=== PATIENT | male | born 2005 | race Caucasian/White ===

== ENCOUNTER 2023-11-09 15:46 | Emergency (ER) | payer OTHER, SELFPAY ==
[2023-11-09 15:49] VITALS: BP 117/94; PULSE 82; TEMP 36.6; O2SAT 99; BMI 29.6
--- NOTE | 2023-11-09 15:55 | XR_ITS ---
The [address] [address] Patient Name: CHRISTI DOUGHERTY MRN: [id number] date: 2005 Sex: M Assigned Patient Location: ED.MAIN Current Patient Location: ED.MAIN Accession/Order Number: [id number] Exam Date: 11/09/2023 16:04 Report Date: 11/09/2023 17:00 At the request of: NANDO CARDENAS Procedure: XR chest 2V EXAM: XR chest 2V HISTORY: Cough COMPARISON: None. TECHNIQUE: Chest X-ray, 2 views FINDINGS: Support devices: None. Lungs/pleura: No consolidation, effusion, or pneumothorax. Heart and mediastinum: Normal contours. Bones: No acute abnormality identified. XR/XR chest 2V Impression: No radiographic evidence of acute cardiopulmonary process. Electronically authenticated by: ALIE CARTWRIGHT Date: 11/09/2023 17:00
--- NOTE | 2023-11-09 17:06 | ECG_ITS ---
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
--- NOTE | 2023-11-09 17:21 | ED_ITS ---
HPI HPI - General Adult General Chief complaint: Shortness of Breath/Dyspnea Stated complaint: DIFF BREATHING, PRESSURE, CRACKLING Time Seen by Provider: 11/09/23 15:55 Source: patient Mode of arrival: walk-in Limitations: no limitations History of Present Illness HPI narrative: Patient is a 18-year-old male who presents to the emergency department with complaint of feeling short of breath and pressure in the right chest for the last several days. He was recently treated for a chronic sinus infection , throat infection and lung infection by his PCP with amoxicillin. He states 4 to 6 weeks ago he was on low-dose amoxicillin and a metabolic steroid . He has had no objective fevers, vomiting, hemoptysis. No medications taken prior to arrival today. He has no history of any heart or lung problems, no history of extremity swelling, hemoptysis. He arrives with stable vital signs in the ER. Related Data Home Medications ?Medication ?Instructions ?Recorded ?Confirmed bupropion HCl 150 mg 24 hr tablet, 150 mg PO DAILY 11/09/23 11/09/23 extended release buspirone 15 mg tablet 15 mg PO DAILY 11/09/23 11/09/23 dextroamphetamine-amphetamine ER 15 mg PO DAILY 11/09/23 11/09/23 15 mg 24hr capsule,extend release Previous Rx's ?Medication ?Instructions ?Recorded albuterol sulfate 90 mcg/actuation 2 inh inhalation Q4H PRN shortness 11/09/23 aerosol inhaler of breath or wheezing #8.5 grams cefdinir 300 mg capsule 300 mg PO BID 10 days #20 caps 11/09/23 ketorolac 10 mg tablet 10 mg PO TID PRN pain #10 tabs 11/09/23 methylprednisolone 4 mg tablets in See Rx Instructions .Route 11/09/23 a dose pack (Medrol (Candido)) .COMPLEX #21 ea Allergies Allergy/AdvReac Type Severity Reaction Status Date / Time No Known Drug Allergies Allergy Verified 11/09/23 15:58 Opioid HPI Opioid Management Most Recent Opioid Data: No Data to Display Review of Systems ROS Constitutional Denies: fever or chills Ears, nose, mouth, and throat Reports: throat pain; Denies: nasal congestion Cardiovascular Reports: chest pain Respiratory Reports: shortness of breath and cough; Denies: coughing up blood Gastrointestinal Denies: nausea or vomiting Musculoskeletal Denies: back pain Integumentary/Breast Denies: rash Neurological Denies: headache Hematologic/Lymphatic Denies: easy bruising or easy bleeding Exam Narrative Exam Narrative: Gen.: Awake, alert, in no distress Head: Normocephalic, atraumatic ENT: Moist mucous membranes Respiratory: No respiratory distress, lungs clear bilaterally; Pain with inspiration of the right chest wall Cardio: Regular rate and rhythm Gastrointestinal: Abdomen is soft, nondistended and nontender to palpation Extremities: Moves extremities equally Psych: Normal mood and affect Neuro: No focal neuro deficit Skin: Warm, dry, intact Constitutional Vital Signs, click to edit/add: Last Vital Signs Temp 98 F 11/09/23 15:49 Pulse 82 11/09/23 15:49 Resp 20 11/09/23 15:49 BP 117/94 H 11/09/23 15:49 Pulse Ox 99 11/09/23 15:49 O2 Del Method Room Air 11/09/23 15:49 Course Vital Signs Vital signs: Vital Signs Temperature 98 F 11/09/23 15:49 Pulse Rate 82 11/09/23 15:49 Respiratory Rate 20 11/09/23 15:49 Blood Pressure 117/94 H 11/09/23 15:49 Pulse Oximetry 99 11/09/23 15:49 Oxygen Delivery Method Room Air 11/09/23 15:49 Temperature 98 F 11/09/23 15:49 Pulse Rate 82 11/09/23 15:49 Respiratory Rate 20 11/09/23 15:49 Blood Pressure 117/94 H 11/09/23 15:49 Pulse Oximetry 99 11/09/23 15:49 Oxygen Delivery Method Room Air 11/09/23 15:49 Medical Decision Making [facility] Narrative Medical decision making narrative: Patient with normal vital signs, no tachycardia or hypoxia. He has an unremarkable EKG and two-view chest x-ray was read by the radiologist as ne gative. Patient has a PERC score of 0, he is in no respiratory distress and speaking/Breathing easily. He was given a breathing treatment, steroid, cefdinir and Toradol. Prescription sent to the pharmacy for treatment of pleurisy, patient given education and reassurance. Follow-up with PCP and return to the ER if symptoms change or worsen Medical Records Medical records reviewed: Yes I reviewed the patient's medical records Imaging Data Chest x-ray: Attestation: I have reviewed the pertinent imaging results. Radiologist's impression: ITS Impressions Chest X-Ray 11/09/23 15:55 Impression: No radiographic evidence of acute cardiopulmonary process. Electronically authenticated by: ALIE CARTWRIGHT Date: 11/09/2023 17:00 ECG Data Attestation: I personally reviewed and interpreted this ECG as follows: (Normal sinus rhythm at a rate of 82, no acute ST elevation or ectopy. EKG reviewed by attending physician) Discharge Plan Discharge Stand Alone Forms: Portal Instructions Chief Complaint: Shortness of Breath/Dyspnea Clinical Impression: Dyspnea, Pleurisy Patient Disposition: Home, Self-Care Time of Disposition Decision: 17:20 Condition: Good Prescriptions / Home Meds: New ketorolac 10 mg tablet 10 mg PO TID PRN (Reason: pain) Qty: 10 0RF methylprednisolone [Medrol (Candido)] 4 mg tablets,dose pack See Rx Instructions .ROUTE .COMPLEX Qty: 21 0RF Rx Instructions: Taper as directed albuterol sulfate 90 mcg/actuation HFA aerosol inhaler 2 inh inhalation Q4H PRN (Reason: shortness of breath or wheezing) Qty: 8.5 0RF cefdinir 300 mg capsule 300 mg PO BID 10 Days Qty: 20 0RF No Action buspirone 15 mg tablet 15 mg PO DAILY dextroamphetamine-amphetamine 15 mg capsule,extended release 24hr 15 mg PO DAILY bupropion HCl 150 mg tablet extended release 24 hr 150 mg PO DAILY Print Language: [place] Instructions: Pleurisy (ED), Dyspnea (ED) Referrals: NORMA WAKEFIELD [Primary Care Provider] - 1 week
[2023-11-09] MEDS: ALBUTEROL SULFATE 2.5 MG/3 ML VIAL NEB IH (17:25)
[2023-11-09 17:26] VITALS: PULSE 88; O2SAT 97
[2023-11-09] MEDS: CEFDINIR 300 MG CAPSULE 600 MG PO (17:49)
[2023-11-09] MEDS: PREDNISONE 20 MG TABLET 60 MG PO (17:49)
[2023-11-09] MEDS: KETOROLAC TROMETHAMINE 10 MG TABLET PO (17:52)
== END 2023-11-09 18:09 | disposition home or self-care (01) ==
PROVIDERS: Emergency Provider Emergency Medicine; PCP Family Medicine
DX: R06.00 Dyspnea, unspecified (principal); R09.1 Pleurisy
CPT/HCPCS: 71046; 93005; 94640; 99284

== ENCOUNTER 2023-11-17 01:55 | Emergency (ER) | payer OTHER, SELFPAY ==
[2023-11-17 02:04] VITALS: BP 127/87; PULSE 96; TEMP 37.1; O2SAT 98; BMI 29.6
--- OUTSIDE RECORDS SUMMARY | 2023-11-17 02:12 | XMS_ITS | CCD ---
Author Organization [facility] Care Team Providers Care External Grinder Tender Name Role Phone India Tirado Unavailable MagdalenoChanda Unavailable Norma Mcdaniel MD Primary Care Provider NORMA MCDANIEL Attending Unavailable DEFRANCE, NORMA Richardson Referring Unavailable DEFRANCE, NORMA Richardson Primary Care Unavailable DEFRANCE, NORMA Richardson Attending Unavailable DEFRANCE, NORMA Richardson Referring Unavailable DEFRANCE, NORMA Richardson Primary Care Unavailable DEFRANCE, NORMA Richardson Attending Unavailable DEFRANCE, NORMA Richardson Referring Unavailable DEFRANCE, NORMA Richardson Primary Care Unavailable DEFRANCE, NORMA Richardson Attending Unavailable DEFRANCE, NORMA Richardson Referring Unavailable DEFRANCE, NORMA Richardson Primary Care Unavailable DEFRANCE, NORMA Richardson Attending Unavailable DEFRANCE, NORMA Richardson Referring Unavailable DEFRANCE, NORMA Richardson Primary Care Unavailable DEFRANCE, NORMA Richardson Attending Unavailable DEFRANCE, NORMA Richardson Referring Unavailable DEFRANCE, NORMA Richardson Primary Care Unavailable SHELLILAKESHA Attending Unavailable DEFRANCE, NORMA Richardson Referring Unavailable DEFRANCE, NORMA Richardson Primary Care Unavailable JEZAKATHY Collins Attending Unavailable DEFRANCE, NORMA Richardson Referring Unavailable DEFRANCE, NORMA Richardson Primary Care Unavailable SHELLILAKESHA Attending Unavailable DEFRANCE, NORMA Richardson Referring Unavailable DEFRANCE, NORMA Richardson Primary Care Unavailable DEFRANCE, NORMA Richardson Referring Unavailable DEFRANCE, NORMA Richardson Primary Care Unavailable DEFRANCE, NORMA Richardson Referring Unavailable DEFRANCE, NORMA Richardson Primary Care Unavailable SHELLILAKESHA Attending Unavailable DEFRANCE, NORMA Richardson Referring Unavailable DEFRANCE, NORMA Richardson Primary Care Unavailable DEFRANCE, NORMA Richardson Referring Unavailable DEFRANCE, NORMA Richardson Primary Care Unavailable SHELLILAKESHA Attending Unavailable DEFRANCE, NORMA Richardson Referring Unavailable DEFRANCE, NORMA Richardson Primary Care Unavailable JEZAKATHY Collins Attending Unavailable DEFRANCE, NORMA Richardson Referring Unavailable DEFRANCE, NORMA Richardson Primary Care Unavailable DEFRANCE, NORMA Richardson Referring Unavailable DEFRANCE, NORMA T Primary Care Unavailable SHELLI, LAKESHA Walker Attending Unavailable DEFRANCE, NORMA T Referring Unavailable DEFRANCE, NORMA T Primary Care Unavailable JEZAKATHY Collins Attending Unavailable DEFRANCE, NORMA T Referring Unavailable DEFRANCE, NORMA T Primary Care Unavailable SHELLI, LAKESHA Walker Attending Unavailable DEFRANCE, NORMA T Referring Unavailable DEFRANCE, NORMA T Primary Care Unavailable SHELLI, LAKESHA Walker Attending Unavailable DEFRANCE, NORMA T Referring Unavailable DEFRANCE, NORMA T Primary Care Unavailable DEFRANCE, NORMA T Referring Unavailable DEFRANCE, NORMA T Primary Care Unavailable JEZAKKATHY Attending Unavailable DEFRANCE, NORMA T Referring Unavailable DEFRANCE, NORMA T Primary Care Unavailable DEFRANCE, NORMA T Referring Unavailable DEFRANCE, NORMA T Primary Care Unavailable SHELLI, LAKESHA Walker Attending Unavailable DEFRANCE, NORMA T Referring Unavailable DEFRANCE, NORMA T Primary Care Unavailable DEFRANCE, NORMA T Referring Unavailable DEFRANCE, NORMA T Primary Care Unavailable SHELLI, LAKESHA Wakler Attending Unavailable DEFRANCE, NORMA T Referring Unavailable DEFRANCE, NORMA T Primary Care Unavailable JEZAKKATHY Attending Unavailable DEFRANCE, NORMA T Referring Unavailable DEFRANCE, NORMA T Primary Care Unavailable JEZAKKATHY Attending Unavailable DEFRANCE, NORMA T Referring Unavailable DEFRANCE, NORMA T Primary Care Unavailable JEZAK, KATHY MEYER Referring Unavailable DEFRANCE, NORMA T Primary Care Unavailable SHELLI, LAKESHA Walker Attending Unavailable DEFRANCE, NORMA T Referring Unavailable DEFRANCE, NORMA T Primary Care Unavailable JEZAKKATHY Attending Unavailable DEFRANCE, NORMA T Referring Unavailable DEFRANCE, NORMA T Primary Care Unavailable SHELLI, LAKESHA Walker Attending Unavailable DEFRANCE, NORMA T Referring Unavailable DEFRANCE, NORMA T Primary Care Unavailable Medications Current Medications Medication Drug Class(es) Dates Sig (Normalized) Sig (Original) 24 hr amphetamine aspartate 3.75 mg / amphetamine sulfate 3.75 mg / dextroamphetamine saccharate 3.75 mg / dextroamphetamine sulfate 3.75 mg extended release oral capsule (6 sources) Central Nervous System Stimulant Start: 09-04-2023 End: 10-04-2023 take 1 capsule by mouth once daily in the morning amphetamine-dextro amphetamine XR (ADDERALL XR) 15 mg 24 hr capsule Indications: Attention deficit hyperactivity disorder (ADHD), combined type Take 1 capsule (15 mg total) by mouth in the morning for 30 days. Max Daily Amount: 15 mg. 30 capsule 0 09/04/2023 10/04/2023 Active Start: 07-22-2023 End: 09-06-2023 take 1 capsule by mouth once daily in the morning amphetamine-dextroamphetamine XR (ADDERA LL XR) 10 mg 24 hr capsule Indications: Attention deficit hyperactivity disorder (ADHD), combined type Take 1 capsule (10 mg total) by mouth in the morning for 30 days. Max Daily Amount: 10 mg. 30 capsule 0 08/07/2023 09/06/2023 Active azithromycin 250 mg oral tablet (1 source) Macrolide Antimicrobial Start: 09-04-2023 End: 09-09-2023 azithromycin (ZITHROMAX) 250 mg tablet Take 2 tablets the first day, then 1 tablet daily for 4 days. 6 tablet 0 09/04/2023 09/09/2023 Active 24 hr buPROPion hydrochloride 150 mg extended release oral tablet (8 sources) Aminoketone Start: 09-04-2023 take 1 tablet by mouth every twenty-four hours in the morning buPROPion XL (WELLBUTRIN XL) 150 mg 24 hr tablet Indications: Severe recurrent major depression without psychotic features (CMS-HCC) Take 1 tablet (150 mg total) by mouth in the morning. 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 30 tablet 3 06/13/2023 Active take 1 tablet by colette th every twenty-four hours Wellbutrin XL 150 MG 1 tablet in the morning Orally Once a day Active busPIRone hydrochloride 15 mg oral tablet (6 sources) Start: 09-04-2023 take 1 tablet by mouth in the morning, then take 1 tablet by mouth at bedtime busPIRone (BUSPAR) 15 mg tablet Indications: Generalized anxiety disorder Take 1 tablet (15 mg total) by mouth in the morning and 1 tablet (15 mg total) before bedtime. 60 tablet 3 09/04/2023 Active Start: 08-29-2023 take 10 mg by mouth twice riri y Buspirone Active 10 MG PO Twice daily August 29, 2023 12:00am Start: 08-07-2023 take 1 tablet by colette th in the morning, then take 1 tablet by mouth at bedtime busPIRone (BUSPAR) 10 mg tablet Indications: Generalized anxiety disorder Take 1 tablet (10 mg total) by mouth in the morning and 1 tablet (10 mg total) before bedtime. 60 tablet 3 08/07/2023 Active ciprofloxacin 500 mg oral tablet (4 sources) Quinolone Antimicrobial Start: 08-07-2023 End: 08-22-2023 take 1 tablet by mouth in the morning, then take 1 tablet by mouth at bedtime ciprofloxacin HCl (CIPRO) 500 mg tablet Take 1 tablet (500 mg total) by mouth in the morning and 1 tablet (500 mg total) before bedtime. Do all this for 15 days. 30 tablet 0 08/07/2023 08/22/2023 Active Dextroamphetamine-A mphetamine (1 source) Start: 08-29-2023 Dextroamphetamine- Amphetamine Active PO August 29, 2023 12:00am hydrOXYzine hydrochloride 25 mg oral tablet (7 sources) Antihistamine Start: 06-26-2023 take 1 tablet by mouth three times daily as needed for anxiety and sleep hydrOXYzine (ATARAX) 25 mg tablet Indications: Generalized anxiety disorder Take 1 tablet (25 mg total) by mouth 3 (three) times a day as needed for anxiety (and sleep). 90 tablet 3 06/26/2023 Active take 1 tablet by colette th every twenty-four hours hydrOXYzine HCl 25 MG 1 tablet as needed Orally Once a day Active Completed/Discontinued Medications Medication Drug Class(es) Dates Sig (Normalized) Sig (Original) ARIPiprazole 5 mg oral tablet (4 sources) Atypical Antipsychotic ARIPiprazole 5 MG Oral for 30 Days Not-Taking/PRN ascorbic acid 500 mg oral tablet (8 sources) Vitamin C End: 09-04-2023 take 1 tablet by mouth in the morning ascorbic acid (VITAMIN C) 500 mg tablet Take 1 tablet (500 mg total) by mouth in the morning. 0 09/04/2023 Discontinued (Alternate therapy) calcium carbonate 1250 mg / cholecalciferol 200 unt oral tablet (8 sources) Vitamin D End: 09-04-2023 take 1 tablet by mouth once in the morning calcium carbonate-vitamin D3 (OSCAL 500 + D) 500 mg(1,250mg) -200 units per tablet Take 1 tablet by mouth in the morning and 1 tablet in the evening. Take with meals. 0 09/04/2023 Discontinued (Alternate therapy) cetirizine hydrochloride 10 mg oral tablet (3 sources) Histamine-1 Receptor Antagonist Start: 03-19-2023 take 1 tablet by mouth every twenty-four hours Cetirizine HCl 10 MG 1 tablet Orally Once a day for 14 days Mar, Not-Taking/PRN Creatine (7 sources) End: 08-13-2023 creatine monohydrate powder Take by mouth. 0 08/13/2023 Discontinued (Alternate therapy) creatine monohyd rate powder Take by mouth. 0 Active cyclobenzaprine hydrochloride 10 mg oral tablet (6 sources) Muscle Relaxant Start: 08-07-2023 End: 09-04-2023 take 1 tablet by mouth once daily at bedtime cyclobenzaprine (FLEXERIL) 10 mg tablet Take 1 tablet (10 mg total) by mouth once daily at bedtime. 30 tablet 1 08/07/2023 09/04/2023 Discontinued (Alternate therapy) Start: 04-29-2023 End: 06-06-2023 take 1 tablet by mouth once daily cyclobenzaprine (FLEXERIL) 10 mg tablet Take 1 tablet (10 mg total) by mouth nightly. 30 tablet 3 04/29/2023 06/06/2023 Discontinued (Alternate therapy) escitalopram 5 mg oral tablet (4 sources) Serotonin Reuptake Inhibitor take 1 tablet by mouth once daily in the morning Escitalopram Oxalate 5 MG TAKE 1 TABLET BY MOUTH EVERY MORNING Oral for 30 Days Not-Taking/PRN fluticasone propionate 0.05 mg/actuat metered dose nasal spray (5 sources) Corticosteroid End: take 1 spray(s) nasal route in the morning fluticasone propionate (FLONASE) 50 mcg/actuation nasal spray Administer 1 spray into each nostril in the morning. For 1 week. 0 08/13/2023 Discontinued (Alternate therapy) ibuprofen 800 mg oral tablet (7 sources) Nonsteroidal Anti-inflammatory Drug Start: End: take 1 tablet by mouth every eight hours as needed for pain ibuprofen (MOTRIN) 800 mg tablet Take 1 tablet (800 mg total) by mouth every 8 (eight) hours as needed for pain. 60 tablet 2 04/29/2023 08/13/2023 Discontinued (Alternate therapy) lamoTRIgine 25 mg oral tablet (4 sources) Mood Stabilizer, Anti-epileptic Agent lamoTRIgine 25 MG Oral for 37 Days Not-Taking/PRN naproxen 500 mg oral tablet (6 sources) Nonsteroidal Anti-inflammatory Drug Start: End: take 1 tablet by mouth in the morning, then take 1 tablet by mouth at mealtime naproxen (NAPROSYN) 500 mg tablet Take 1 tablet (500 mg total) by mouth in the morning and 1 tablet (500 mg total) in the evening. Take with meals. 60 tablet 2 08/07/2023 08/08/2023 Discontinued (Alternate therapy) Start: 04-23-2023 take 1 tablet by colette th every twelve hours at mealtime as needed Naproxen 500 MG 1 tablet with food or milk as needed Orally every 12 hrs for 7 days Apr, Not-Taking/PRN End: 06-06-2023 take 1 tablet by mouth in the morning, then take 1 tablet by mouth at mealtime naproxen (EC NAPROSYN) 500 mg EC tablet Take 1 tablet (500 mg total) by mouth in the morning and 1 tablet (500 mg total) in the evening. Take with meals. 0 06/06/2023 Discontinued (Alternate therapy) omega 3-ldu-xuj-fish oil (Fi sh OiL) 300-1,000 mg capsule (8 sources) End: 09-04-2023 omega 2-ndl-hgp-fish oil (Fi sh OiL) 300-1,000 mg capsule Take by mouth. 0 09/04/2023 Discontinued (Alternate therapy) omega 3-dha-epa- fish oil (Fish OiL) 300-1,000 mg capsule Take by mouth. 0 Active predniSONE 20 mg oral tablet (4 sources) Start: 08-25-2023 End: 09-04-2023 take 1 tablet by mouth once daily at mealtime predniSONE (DELTASONE) 20 mg tablet Take 1 tablet (20mg) by mouth once a day for up to 5 days, take with food 0 08/25/2023 09/04/2023 Discontinued (Alternate therapy) Start: 03-19-2023 take 1 tablet by colette th every twelve hours prednisone 20 MG 1 tablet Orally BID for 5 Mar, Not-Taking/PRN UNABLE TO FIND (8 sources) End: 09-04-2023 UNABLE TO FIND Ashwaganda 0 09/04/2023 Discontinued (Alternate therapy) UNABLE TO FIND A shwaganda 0 Active vitamin b12 0.5 mg oral tablet (8 sources) Vitamin B12 End: 09-04-2023 take 1 tablet by mouth in the morning cyanocobalamin (vitamin B-12) 500 MCG tablet Take 1 tablet (500 mcg total) by mouth in the morning. 0 09/04/2023 Discontinued (Alternate therapy) Problems Active Problems Problem Classification Problem Date Documented Da te Episodic/Chronic Anxiety disorders (9 sources) Generalized anxiety disorder; Translations: [Generalized anxiety disorder] Onset: 03-25-2023 03-25-2023 Chronic Attention-deficit, conduct, and disruptive behavior disorders (3 sources) Attention-deficit hyperactivity disorder, combined type; Translations: [Attention-deficit hyperactivity disorder. combined type] Onset: 05-23-2023 Chronic Attention-deficit, conduct, and disruptive behavior disorders (6 sources) Attention deficit hyperactivity disorder, combined type; Translations: [Attention-deficit hyperactivity disorder, combined type] Onset: 06-13-2023 06-13-2023 Chronic Miscellaneous mental health disorders (2 sources) Insomnia due to other mental disorder; Translations: [Mental disorder, not otherwise specified] Onset: 06-13-2023 Chronic Mood disorders (11 sources) Dysthymic disorder; Translations: [Severe recurrent major depression without psychotic features] Onset: 03-25-2023 Chronic Nonspecific chest pain (1 source) Chest pain Onset: 10-17-2023 Episodic Other gastrointestinal disorders (2 sources) Dysphagia; Translations: [Dysphagia, unspecified] Episodic Other liver diseases (2 sources) Elevated liver enzymes level; Translations: [Abnormal levels of other serum enzymes] 08-08-2023 Episodic Other liver diseases (1 source) Abnormal levels of other serum enzymes; Translations: [Abnormal levels of other serum enzymes] Onset: 08-13-2023 Episodic Other nervous system disorders (1 source) Neuralgic amyotrophy; 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 Other nervous system disorders (2 sources) Other chronic pain; Translations: [Other chronic pain] Onset: 08-07-2023 Chronic Other nervous system disorders (2 sources) Neuralgic amyotrophy; 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] Onset: 05-14-2023 Chronic Other non-traumatic joint disorders (1 source) Chronic pain of left upper limb; Translations: [Pain in left shoulder] 08-07-2023 Episodic Other upper respiratory disease (3 sources) Allergic rhinitis due to pollen; Translations: [Allergic rhinitis due to pollen] Chronic Other upper respiratory disease (1 source) Allergic rhinitis due to pollen Chronic Other upper respiratory infections (5 sources) Acute pharyngitis, unspecified; Translations: [Acute upper respiratory infection, unspecified] Onset: 10-17-2023 Episodic Otitis media and related conditions (1 source) Other acute nonsuppurative otitis media, right ear Episodic Pleurisy; pneumothorax; pulmonary collapse (3 sources) Pleurisy; Translations: [Pleurisy] Onset: 09-04-2023 09-04-2023 Episodic Spondylosis; intervertebral disc disorders; other back problems (1 source) Spondylosis; intervertebral disc disorders; other back problems Onset: 06-06-2023 Sprains and strains (1 source) Strain of muscle, fascia and tendon of lower back, initial encounter Episodic Unclassified (1 source) Results Onset: 08-13-2023 Unclassified (1 source) Testicle Pain Onset: 06-19-2023 Past or Other Problems Problem Classification Problem Date Documented Date Episodic/Chronic Immunizations and screening for infectious disease (3 sources) Exposure to sexually transmissible disorder; Translations: [Contact with and (suspected) exposure to infections with a predominantly sexual mode of transmission] Onset: 08-07-2023 08-07-2023 Episodic Inflammatory conditions of male genital organs (1 source) Epididymitis; Translations: [Epididymitis] Onset: 06-19-2023 Episodic Malaise and fatigue (3 sources) Fatigue; Translations: [Other fatigue] Onset: 08-07-2023 08-07-2023 Episodic Mood disorders (8 sources) Mood disorders Onset: 06-06-2023 Resolved: 09-04-2023 06-06-2023 Other non-traumatic joint disorders (2 sources) Pain in left shoulder; Translations: [Pain in left shoulder] Onset: 08-07-2023 Episodic Spondylosis; intervertebral disc disorders; other back problems (3 sources) Neck pain; Translations: [Cervicalgia] Onset: 06-06-2023 06-06-2023 Episodic Results Test Name Value Interpretation Reference Range Facility XR CHEST 2 VWSon 09-04-2023 XR CHEST 2 VWS XR CHEST 2 VWS PA and lateral chest: HISTORY: Cough. Pleurisy. 2 views the chest are obtained. Cardiac and mediastinal contours are within normal limits. Lungs are clear. There is no vascular congestion or effusion. No pneumothorax. Osseous structures appear intact. IMPRESSION: No acute findings. Finalized by Stephen Urbina MD on 09/04/2023 7:31 PM Normal [facility] XR Chest PA and Lateralon PA and lateral chest : HISTORY: Cough. Pleurisy. 2 views the chest are obtained. Cardiac and mediastinal contours are within normal limits. Lungs are clear. There is no vascular congestion or effusion. No pneumothorax. Osseous structures appear intact. IMPRESSION: No acute findings. Finalized by Stephen Urbina MD on 09/04/2023 7:31 PM [facility] Stephen Urbina M D - 09/04/2023 PA and lateral chest: HISTORY: Cough. Pleurisy. 2 views the chest are obtained. Cardiac and mediastinal contours are within normal limits. Lungs are clear. There is no vascular congestion or effusion. No pneumothorax. Osseous structures appear intact. IMPRESSION: No acute findings. Finalized by Stephen Urbina MD on 09/04/2023 7:31 PM [facility] Radiology Study observation (narrative) [facility] XR Chest PA and LateralOrder ed By: Stephen Urbina on 09-04-2023 [facility] Work Phone: Herpes IgG profileon 024 HSV 1 IgG IA Qn (S) 0.2 {index_val} NINF [facility] Comment on above: Interpretation-------- <0.9 Negative 0.9 - 1.0 Equivocal >1.0 Positive HSV 2 IgG IA Qn (S) MALIK [facility] Comment on above: Interpretation-------- <0.9 Negative 0.9 - 1.0 Equivocal >1.0 Positive [facility] Syphilis Total(Unknown Syphi lis Status)on 08-08-2023 T. pallidum IgG+IgM IA Ql (S) [facility] Comment on above: NON REACTIVE No serologic evidence of infection to Treponema pallidum (syphilis). Repeat testing may be considered in patients with suspected acute or primary syphilis in 2 to 4 weeks. T. pallidum IgG+IgM IA Ql (S )on 08-08-2023 [facility] CBC AND AUTO DIFFon 08-07-19 24 ABSOLUTE BASOPHIL 0.0 X10E9/L Normal 0.0-0.2 [facility] Comment on above: Performed By: #### C BCA, CMP, 56745-2, THYR, 77450-4, HSVP, 98977-5 #### [facility] ([id number]) [address], [address] [place] [address] ABSOLUTE NEUTROPHIL 6.1 X10E9/L Normal 1.5-6.6 [place] Comment on above: Performed By: #### C BCA, CMP, 70911-5, THYR, 32027-2, HSVP, 25066-9 #### [facility] ([id number]) [address], [address] [place] [address] Basophils/100 WBC (Bld) 0.3 % Normal [facility] Comment on above: Performed By: #### C BCA, CMP, 60207-1, THYR, 05062-6, HSVP, 92857-2 #### [facility] ([id number]) [address] [place] [address] Eosinophils (Bld) [#/Vol] 0.1 10*3/uL Normal 0.0-0.4 [facility] Comment on above: Performed By: #### C BCA, CMP, 87321-5, THYR, 66266-5, HSVP, 75407-3 #### [facility] ([id number]) [address] [place] [address] Eosinophils/100 WBC (Bld) 0.9 % Normal [facility] Comment on above: Performed By: #### C BCA, CMP, 72450-5, THYR, 47890-6, HSVP, 15442-3 #### [facility] ([id number]) [address] [place] [address] Erythrocyte distribution width (RBC) [Ratio] 13.8 % Normal 11.5-15.0 [facility] Comment on above: Performed By: #### C BCA, CMP, 53519-7, THYR, 36968-6, HSVP, 37968-5 #### [facility] ([id number]) [address] [place] [address] Hematocrit (Bld) [Volume fraction] 48.6 % Normal 39-49 [facility] Comment on above: Performed By: #### C BCA, CMP, 52346-0, THYR, 32903-5, HSVP, 48917-3 #### [facility] ([id number]) [address] [place] [address] Hemoglobin (Bld) [Mass/Vol] 16.9 g/dL Normal 13.0-17.0 [facility] Comment on above: Performed By: #### C BCA, CMP, 18086-4, THYR, 62777-9, HSVP, 71658-7 #### [facility] ([id number]) [address], [address] [place] [address] Lymphocytes (Bld) [#/Vol] 2.5 10*3/uL Normal 1.0-3.5 [facility] Comment on above: Performed By: #### C BCA, CMP, 89236-9, THYR, 34486-1, HSVP, 28608-3 #### [facility] ([id number]) [address], [address] [place] [address] Lymphocytes/100 WBC (Bld) 26.2 % Normal [facility] Comment on above: Performed By: #### C BCA, CMP, 38606-5, THYR, 64503-2, HSVP, 85647-6 #### [facility] ([id number]) [address] [place] [address] MCH (RBC) [Entitic mass] 31.4 pg Normal 27-34 [facility] Comment on above: Performed By: #### C BCA, CMP, 47064-8, THYR, 82940-5, HSVP, 26961-3 #### [facility] ([id number]) [address] [place] [address] MCHC (RBC) [Mass/Vol] 34.8 g/dL Normal 32-36 [facility] Comment on above: Performed By: #### C BCA, CMP, 29517-2, THYR, 25847-6, HSVP, 72301-0 #### [facility] ([id number]) [address] [place] [address] MCV (RBC) [Entitic vol] 90 fL Normal 80-100 [facility] Comment on above: Performed By: #### C BCA, CMP, 67122-0, THYR, 62016-1, HSVP, 60196-7 #### [facility] ([id number]) [address] [place] [address] Monocytes (Bld) [#/Vol] 1.0 10*3/uL High 0-0.9 [facility] Comment on above: Performed By: #### C BCA, CMP, 50438-9, THYR, 75745-6, HSVP, 89294-3 #### [facility] ([id number]) [address], [address] [place] [address] Monocytes/100 WBC (Bld) 9.9 % Normal [facility] Comment on above: Performed By: #### C BCA, CMP, 57685-4, THYR, 24804-1, HSVP, 01478-2 #### [facility] ([id number]) [address], [address] [place] [address] Neutrophils/100 WBC (Bld) 62.7 % Normal [facility] Comment on above: Performed By: #### C BCA, CMP, 79337-2, THYR, 12656-8, HSVP, 23516-1 #### [facility] ([id number]) [address], [address] [place] [address] Platelet mean volume (Bld) [Entitic vol] 8.7 fL Normal 7-12 [facility] Comment on above: Performed By: #### C BCA, CMP, 84014-2, THYR, 36386-7, HSVP, 19232-2 #### [facility] ([id number]) [address], [address] [place] [address] Platelets (Bld) [#/Vol] 245 10*3/uL Normal 150-450 [facility] Comment on above: Performed By: #### C BCA, CMP, 97954-8, THYR, 20420-7, HSVP, 88571-7 #### [facility] ([id number]) [address], [address] [place] [address] RBC COUNT 5.40 X10E12/L Normal 4.10-5.70 [facility] Comment on above: Performed By: #### C BCA, CMP, 99184-0, THYR, 86086-3, HSVP, 24664-0 #### [facility] ([id number]) [address], [address] [place] [address] WBC (Bld) [#/Vol] 9.7 10*3/uL Normal 4.0-11.0 [facility] Comment on above: Performed By: #### C BCA, CMP, 15629-0, THYR, 60016-0, HSVP, 22873-1 #### [facility] ([id number]) [address] [place] [address] CBC auto differentialon Basophils (Bld) [#/Vol] 0.0 10*3/uL [facility] Basophils/100 WBC (Bld) 0.3 % [facility] Eosinophils (Bld) [#/Vol] 0.1 10*3/uL [facility] Eosinophils/100 WBC (Bld) 0.9 % [facility] Erythrocyte distribution width (RBC) [Ratio] 13.8 % 11.5 - 15.0 % [facility] Hematocrit (Bld) [Volume fraction] 48.6 % 39 - 49 % [facility] Hemoglobin (Bld) [Mass/Vol] 16.9 g/dL 13.0 - 17.0 g/dL [facility] Interpretation and review of laboratory results Abnormal [facility] Lymphocytes (Bld) [#/Vol] 2.5 10*3/uL [facility] Lymphocytes/100 WBC (Bld) 26.2 % [facility] MCH (RBC) [Entitic mass] 31.4 pg 27 - 34 pg [facility] MCHC (RBC) [Mass/Vol] 34.8 g/dL 32 - 36 g/dL [facility] MCV (RBC) [Entitic vol] 90 fL 80 - 100 fL [facility] Monocytes (Bld) [#/Vol] 1.0 10*3/uL High [facility] Monocytes/100 WBC (Bld) 9.9 % [facility] Neutrophils (Bld) [#/Vol] 6.1 10*3/uL [facility] Neutrophils/100 WBC (Bld) 62.7 % [facility] Platelet mean volume (Bld) [Entitic vol] 8.7 fL 7 - [address] [facility] Platelets (Bld) [#/Vol] 245 10*3/uL [facility] RBC (Bld) [#/Vol] 5.40 10*6/uL [facility] WBC corrected for nucl RBC Auto (Bld) [#/Vol] 9.7 [facility] CHLAMYDIA/GC PCR, Uon 2023 CHLAMYDIA/GC PCR, U SPECIMEN SOURCE URNE CHLAMYDIA DNA(PCR) Negative (qualifier value) Chlamydia trachomatis not detected by nucleic acid amplification. This does not exclude the possibility of infection because results are dependent on adequate specimen collection. GONORRHOEAE DNA(PCR) Negative (qualifier value) Neisseria gonorrhoeae not detected by nucleic acid amplification. This does not exclude the possibility of infection because results are dependent on adequate specimen collection. Normal [facility] Comment on above: Performed By: #### 5 6888-1, HSVP, 04848-8 #### [facility] ([id number]) [address], [address] [place] [address] COMPREHENSIVE METABOLIC PANE Irwin 08-07-2023 Albumin [Mass/Vol] 4.7 g/dL Normal 3.2-5.3 [facility] Comment on above: Performed By: #### C BCA, CMP, 95633-3, THYR, 39005-7, HSVP, 84974-3 #### [facility] ([id number]) [address], [address] [place] [address] ALP [Catalytic activity/Vol] 71 U/L Normal 39-130 [facility] Comment on above: Performed By: #### C BCA, CMP, 72037-6, THYR, 08241-0, HSVP, 91074-7 #### [facility] ([id number]) [address], [address] [place] [address] ALT [Catalytic activity/Vol] 103 U/L High 0-40 [facility] Comment on above: Performed By: #### C BCA, CMP, 78233-9, THYR, 18734-6, HSVP, 73876-8 #### [facility] ([id number]) [address], [address] [place] [address] Anion gap [Moles/Vol] 9 mmol/L Normal 5-15 [facility] Comment on above: Performed By: #### C BCA, CMP, 05738-7, THYR, 35143-6, HSVP, 71839-7 #### [facility] ([id number]) [address], [address] [place] [address] AST [Catalytic activity/Vol] 36 U/L Normal 0-41 [facility] Comment on above: Performed By: #### C BCA, CMP, 23045-1, THYR, 32220-4, HSVP, 37585-2 #### [facility] ([id number]) [address], [address] [place] [address] Bilirubin [Mass/Vol] 1.0 mg/dL Normal 0.3-1.2 [place] Comment on above: Performed By: #### C BCA, CMP, 43152-3, THYR, 33011-2, HSVP, 42975-5 #### [facility] ([id number]) [address], [address] [place] [address] Calcium [Mass/Vol] 9.7 mg/dL Normal 8.5-10.5 [facility] Comment on above: Performed By: #### C BCA, CMP, 18761-9, THYR, 04864-1, HSVP, 60930-5 #### [facility] ([id number]) [address], [address] [place] [address] Chloride [Moles/Vol] 103 mmol/L Normal 98-109 [place] Comment on above: Performed By: #### C BCA, CMP, 68526-2, THYR, 22953-6, HSVP, 70957-6 #### [facility] ([id number]) [address], [address] [place] [address] CO2 [Moles/Vol] 28 mmol/L Normal 22-32 [facility] Comment on above: Performed By: #### C BCA, CMP, 23918-5, THYR, 56739-9, HSVP, 60437-8 #### [facility] ([id number]) [address], [address] [place] [address] Creatinine [Mass/Vol] 1.02 mg/dL Normal 0.60-1.30 [facility] Comment on above: Result Comment: METH OD TRACEABLE TO IDMS STANDARD Performed By: #### C BCA, CMP, 85689-9, THYR, 46002-4, HSVP, 50917-1 #### [facility] ([id number]) [address], [address] [place] [address] eGFR (CKD-EPI) NON-RACE DEPENDENT >90 Normal >59 [facility] Comment on above: Result Comment: Reported eGFR is based on the CKD-EPI 2020 equation that does not use a race coefficient. Performed By: #### C BCA, CMP, 14787-7, THYR, 75899-3, HSVP, 86083-4 #### [facility] ([id number]) [address], [address] [place] [address] Glucose [Mass/Vol] 77 mg/dL Normal 65-99 [facility] Comment on above: Performed By: #### C BCA, CMP, 47111-8, THYR, 34562-3, HSVP, 04515-8 #### [facility] ([id number]) [address], [address] [place] [address] Potassium [Moles/Vol] 3.9 mmol/L Normal 3.5-5.0 [facility] Comment on above: Performed By: #### C BCA, CMP, 62390-4, THYR, 76771-9, HSVP, 75682-3 #### [facility] ([id number]) [address], [address] [place] [address] Protein [Mass/Vol] 7.5 g/dL Normal 6.0-8.0 [facility] Comment on above: Performed By: #### C BCA, CMP, 66238-0, THYR, 64634-2, HSVP, 71228-8 #### [facility] ([id number]) [address], [address] [place] [address] Sodium [Moles/Vol] 140 mmol/L Normal 134-146 [facility] Comment on above: Performed By: #### C BCA, CMP, 85318-2, THYR, 64073-3, HSVP, 14934-7 #### [facility] ([id number]) [address], [address] [place] [address] Urea nitrogen [Mass/Vol] 10 mg/dL Normal 5-23 [facility] Comment on above: Performed By: #### C BCA, CMP, 57235-0, THYR, 32483-7, HSVP, 08714-4 #### [facility] ([id number]) [address], [address] [place] [address] Comprehensive metabolic pane irwin 08-07-2023 Albumin [Mass/Vol] 4.7 g/dL 3.2 - 5.3 g/dL [facility] ALP [Catalytic activity/Vol] 71 U/L 39 - 130 U/L [facility] ALT No additional P-5'-P [Catalytic activity/Vol] 103 U/L High 0 - 40 U/L [facility] Anion gap [Moles/Vol] 9 mmol/L 5 - 15 mmol/L [facility] AST [Catalytic activity/Vol] 36 U/L 0 - 41 U/L [facility] Bilirubin [Mass/Vol] 1.0 mg/dL 0.3 - 1 .2 mg/dL [facility] Calcium [Mass/Vol] 9.7 mg/dL 8.5 - 10. 5 mg/dL [facility] Chloride [Moles/Vol] 103 mmol/L 98 - 10 9 mmol/L [facility] CO2 [Moles/Vol] 28 mmol/L 22 - 32 mmol/L [facility] Creatinine [Mass/Vol] 1.02 mg/dL 0.60 - 1.30 mg/dL [facility] Comment on above: METHOD TRACEABLE TO [facility] STANDARD eGFR (CKD-EPI)non-race dependent - PINF [facility] Comment on above: Reported eGFR is based on the CKD-EPI 2020 equation that does not use a race coefficient. Glucose [Mass/Vol] 77 mg/dL 65 - 99 mg/dL [facility] Potassium [Moles/Vol] 3.9 mmol/L 3.5 - 5.0 mmol/L [facility] Protein [Mass/Vol] 7.5 g/dL 6.0 - 8.0 g/dL [facility] Sodium [Moles/Vol] 140 mmol/L 134 - 146 mmol/L [facility] Urea nitrogen [Mass/Vol] 10 mg/dL 5 - 23 mg/dL [facility] HERPES IgG PROFILEon 08-06-2 024 HERPES 1 IgG 0.2 AI Normal <0.9 [facility] Comment on above: Result Comment: Interpretation-------- <0.9 Negative 0.9 - 1.0 Equivocal >1.0 Positive Performed By: #### 5 6888-1, HSVP, 84763-2 #### [facility] ([id number]) [address] [place] [address] HERPES 2 IgG <0.2 Normal <0.9 [facility] Comment on above: Result Comment: Interpretation-------- <0.9 Negative 0.9 - 1.0 Equivocal >1.0 Positive Performed By: #### 5 6888-1, HSVP, 64225-6 #### [facility] ([id number]) [address] [place] [address] HIV 1&2 AB/AG Screen (P24 AG )on 08-07-2023 HIV 1+2 Ab+HIV1 p24 Ag IA Ql Non-Reactive Non-Reactive^ Non-Reactive [facility] Comment on above: This information has been disclosed to you from confidential records protected from disclosure by state law. You shall make no further disclosure of this information without the specific, written and informed release of the individual to whom it pertains, or as otherwise permitted by state law. A general authorization for the release of medical or other information is not sufficient for the purpose of the release of HIV test results or diagnoses. HIV 1+2 Ab+HIV1 p24 Ag IA Ql on 08-07-2023 [facility] HIV 1 and 2 Ab/Ag Screen Non-Reactive Normal NRCT [facility] Comment on above: Result Comment: This information has been disclosed to you from confidential records protected from disclosure by state law. You shall make no further disclosure of this information without the specific, written and informed release of the individual to whom it pertains, or as otherwise permitted by state law. A general authorization for the release of medical or other information is not sufficient for the purpose of the release of HIV test results or diagnoses. Performed By: #### 5 6888-1, HSVP, 31862-5 #### [facility] ([id number]) [address] [place] [address] Lipid 1996 panelon 4 Cholesterol [Mass/Vol] 181 mg/dL 150 - 200 mg/dL [facility] Cholesterol in HDL [Mass/Vol] 38 mg/dL Low 39 - PINF mg/dL [facility] Comment on above: HDL <40 mg/dL - High Risk HDL > or = 40mg/dL- Desirable HDL >60 mg/dL - Negative Risk Cholesterol in LDL [Mass/Vol] 115 mg/dL NINF - 130 mg/dL [facility] Comment on above: LDL <100 mg/dL - Desirable LDL >160 mg/dL - High Risk Cholesterol in VLDL [Mass/Vol] 28 mg/dL 0 - 30 mg/dL [facility] Cholesterol.total/Ch olesterol in HDL [Mass ratio] 4.8 {ratio} 1.0 - 5.0 [facility] Triglyceride [Mass/Vol] 141 mg/dL 27 - 150 mg/dL [facility] Cholesterol [Mass/Vol] 181 mg/dL Normal 150-200 [facility] Comment on above: Performed By: #### C BCA, CMP, 16079-6, THYR, 35860-2, HSVP, 25085-9 #### [facility] ([id number]) [address], [address] [place] [address] Cholesterol in HDL [Mass/Vol] 38 mg/dL Low >39 [facility] Comment on above: Result Comment: HDL <40 mg/dL - High Risk HDL > or = 40mg/dL- Desirable HDL >60 mg/dL - Negative Risk Performed By: #### C BCA, CMP, 35066-8, THYR, 61682-6, HSVP, 08989-0 #### [facility] ([id number]) [address] [place] [address] Cholesterol in LDL [Mass/Vol] 115 mg/dL Normal <130 [facility] Comment on above: Result Comment: LDL <100 mg/dL - Desirable LDL >160 mg/dL - High Risk Performed By: #### C BCA, CMP, 65146-7, THYR, 24589-3, HSVP, 49683-8 #### [facility] ([id number]) [address] [place] [address] Cholesterol in VLDL [Mass/Vol] 28 mg/dL Normal 0-30 [facility] Comment on above: Performed By: #### C BCA, CMP, 82694-0, THYR, 54290-8, HSVP, 24444-9 #### [facility] ([id number]) [address] [address] CHOLESTEROL:HDL 4.8 Normal 1.0-5.0 [facility] Comment on above: Performed By: #### C BCA, CMP, 18822-2, THYR, 55351-9, HSVP, 26016-7 #### [facility] ([id number]) [address] [place] [address] Triglyceride [Mass/Vol] 141 mg/dL Normal 27-150 [facility] Comment on above: Performed By: #### C BCA, CMP, 66632-1, THYR, 91720-5, HSVP, 20495-1 #### [facility] ([id number]) [address], [facility] [address] [place] [address] No Panel Informationon 08-06 Interpretation and review of laboratory results Abnormal [facility] T. pallidum IgG+IgM IA Ql (S )on 08-07-2023 Syphilis Total <0.2 Normal 0.0-0.8 [facility] Comment on above: Result Comment: NON REACTIVE No serologic evidence of infection to Treponema pallidum (syphilis). Repeat testing may be considered in patients with suspected acute or primary syphilis in 2 to 4 weeks. Performed By: #### 5 6888-1, HSVP, 54488-8 #### [facility] ([id number]) [address], [address] [place] [address] THYROID PROFILEon 08-07-2023 Free T4 [Mass/Vol] 0.76 ng/dL Normal 0.61-1.60 [facility] Comment on above: Performed By: #### 5 6888-1, HSVP, 23522-8 #### [facility] ([id number]) [address], [address] [place] [address] TSH 2.70 uIU/mL Normal 0.49-4.67 [facility] Comment on above: Performed By: #### 5 6888-1, HSVP, 09368-6 #### [facility] ([id number]) [address], [address] [place] [address] Thyroid profile includes TSH FT4on 08-07-2023 Free T4 [Mass/Vol] 0.76 ng/dL 0.61 - 1. 60 ng/dL [facility] TSH Qn 2.70 m[IU]/L [facility] XR SHOULDER LT MIN 2 VWSon 0 08-07-2023 XR SHOULDER LT MIN 2 VWS XR SHOULDER LT MIN 2 VWS XR SHOULDER LT MIN 2 VWS Clinical history:Chronic left shoulder pain Comparison: None. Findings: No acute process fracture or dislocation. Mineralization and alignment appear to be within normal limits. Impression: No acute process with fairly unremarkable appearance of the left shoulder. Finalized by Quinn Chanel MD on 08/07/2023 8:41 PM Normal [facility] XR Shoulder - left 2 Viewson 08-07-2023 XR SHOULDER LT MIN 2 VWS Clinical history:Chronic left shoulder pain Comparison: None. Findings: No acute process fracture or dislocation. Mineralization and alignment appear to be within normal limits. Impression: No acute process with fairly unremarkable appearance of the left shoulder. Finalized by Quinn Chanel MD on 08/07/2023 8:41 PM [facility] - 08/07/2023 XR SHOULDER LT MIN 2 VWS Clinical history:Chronic left shoulder pain Comparison: None. Findings: No acute process fracture or dislocation. Mineralization and alignment appear to be within normal limits. Impression: No acute process with fairly unremarkable appearance of the left shoulder. Finalized by Quinn Chanel MD on 08/07/2023 8:41 PM [facility] Radiology Study observation (narrative) [facility] XR Shoulder - left 2 ViewsOr dered By: Quinn Chanel on 08-07-2023 [facility] Work Phone: DRUG SCREEN, URINEon 024 AMPHETAMINE/METHAMP Negative Normal NEG [facility] Comment on above: Result Comment: AMPH /METH screening cut off = 1000 ng/mL Performed By: #### D GALVIN #### [facility] ([id number]) [address] [place] [address] BARBITURATES Negative Normal NEG [facility] Comment on above: Result Comment: Tiff iturates screening cut off value = 200 ng/mL Performed By: #### D GALVIN #### [facility] ([id number]) [address], [address] [place] [address] BENZODIAZEPINES Negative Normal NEG [facility] Comment on above: Result Comment: Tang odiazepines screening cut off value = 200 ng/mL Performed By: #### D GALVIN #### [facility] ([id number]) [address], [address] [place] [address] CANNABINOIDS Negative Normal NEG [facility] Comment on above: Result Comment: Marivel abinoids/THC screening cut off value = 50 ng/mL Performed By: #### D GALVIN #### [facility] ([id number]) [address], [address] [place] [address] COCAINE METABOLITE Negative Normal NEG [facility] Comment on above: Result Comment: Coca ine screening cut off value = 300 ng/mL Performed By: #### D GALVIN #### [facility] ([id number]) [address] [address] ECSTASY Negative Normal NEG [facility] Comment on above: Result Comment: Ecst asy screening cut off value = 500 ng/mL This report is intended for use in clinical monitoring or management of patients. Performed By: #### D GALVIN #### [facility] ([id number]) [address], [address] [place] [address] METHADONE Negative Normal [facility] Comment on above: Result Comment: Meth adone screening cut off value = 300 ng/mL. Performed By: #### D GALVIN #### [facility] ([id number]) [address], [address] [place] [address] OPIATES Negative Normal [facility] Comment on above: Result Comment: Opia john screening cut off value = 300 ng/mL NOTE: This test is used for the detection of codeine, hydrocodone (>1000 ng/mL), morphine and hydromorphone (>900 ng/mL) in urine. Performed By: #### D GALVIN #### [facility] ([id number]) [address], [address] [address] OXYCODONE Negative Normal NEG [facility] Comment on above: Result Comment: Oxyc odone screening cut off value = 300 ng/mL NOTE: This test is used for the detection of oxycodone and oxymorphone in urine. Performed By: #### D GALVIN #### [facility] ([id number]) [address], [address] [place] [address] PHENCYCLIDINE Negative Normal NEG [facility] Comment on above: Result Comment: Phen cyclidine screening cut off value = 25 ng/mL Performed By: #### D GALVIN #### [facility] ([id number]) [address], [address] [address] CHLAMYDIA/GC PCR, Uon 2023 CHLAMYDIA/GC PCR, U SPECIMEN SOURCE CLEAN CATCH MIDSTREAM URINE CHLAMYDIA DNA(PCR) Negative (qualifier value) Chlamydia trachomatis not detected by nucleic acid amplification. This does not exclude the possibility of infection because results are dependent on adequate specimen collection. GONORRHOEAE DNA(PCR) Negative (qualifier value) Neisseria gonorrhoeae not detected by nucleic acid amplification. This does not exclude the possibility of infection because results are dependent on adequate specimen collection. Normal [facility] Comment on above: Performed By: #### C #### [facility] ([id number]) [address] [place] [address], [place] [address] [facility] ([id number]) [address], [address] [address] HERPES IgG PROFILEon 024 HERPES 1 IgG 0.2 AI Normal <0.9 [facility] Comment on above: Result Comment: Interpretation-------- <0.9 Negative 0.9 - 1.0 Equivocal >1.0 Positive Performed By: #### 5 6888-1, HSVP, 02513-2 #### [facility] ([id number]) [address], [address] [place] [address] HERPES 2 IgG <0.2 Normal <0.9 [facility] Comment on above: Result Comment: Interpretation-------- <0.9 Negative 0.9 - 1.0 Equivocal >1.0 Positive Performed By: #### 5 6888-1, FREDIS, 97998-1 #### [facility] ([id number]) [address] [place] [address], [address] [place] [address] HIV 1+2 Ab+HIV1 p24 Ag IA Ql on 06-17-2023 HIV 1 and 2 Ab/Ag Screen Non-Reactive Normal NRCT [facility] Comment on above: Result Comment: This information has been disclosed to you from confidential records protected from disclosure by state law. You shall make no further disclosure of this information without the specific, written and informed release of the individual to whom it pertains, or as otherwise permitted by state law. A general authorization for the release of medical or other information is not sufficient for the purpose of the release of HIV test results or diagnoses. Performed By: #### 5 6888-1, FREDIS, 30049-5 #### [facility] ([id number]) [address] [place] [address], [address] [place] [address] T. pallidum IgG+IgM IA Ql (S )on 06-17-2023 Syphilis Total 0.2 AI Normal 0.0-0.8 [facility] Comment on above: Result Comment: NON REACTIVE No serologic evidence of infection to Treponema pallidum (syphilis). Repeat testing may be considered in patients with suspected acute or primary syphilis in 2 to 4 weeks. 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 TECHNIQUE: Cervical spine: 3 views COMPARISON: No relevant prior studies are available for comparison. FINDINGS: Vertebral heights and intervertebral disc spaces are intact. There is loss of normal cervical lordosis but no spondylolisthesis is identified. Facet joints are intact. Odontoid process is intact. There is no evidence of bony cervical rib. No significant prevertebral soft tissue abnormality seen. IMPRESSION: * Normal plain film radiographs of the cervical spine apart from loss of normal cervical lordosis. Finalized by J Luis Us MD on 06/07/2023 11:47 AM Normal [facility] Quick Strepon 03-19-2023 S. pyogenes Org specific cx Ql (Throat) Negative [employer] Other Quick Strep [employer] [facility] 12-09-2022 S. pyogenes Org specific cx Ql (Throat) Negative [employer] Other Quick Strep [employer] Other Vital Signs Date Time Vital Sign Value Performing Clinician Facility 09-04-2023 14:43-0400 Body height 170.2 cm Norma Mcdaniel MD Work Phone: [facility] [employer] 09-04-2023 14:43-0400 Body mass index (BMI) [Ratio] 32.73 kg/m2 Norma Mcdaniel MD Work Phone: [facility] [employer] [facility] 09-04-2023 14:43-0400 Body temperature 98.01 [degF] Norma Mcdaniel MD Work Phone: [facility] [employer] [facility] 09-04-2023 14:43-0400 Body weight 94.8 kg Norma Mcdaniel MD Work Phone: [facility] 09-04-2023 14:43-0400 Diastolic blood pressure 80 mm[Hg] Norma Mcdaniel MD Work Phone: [facility] 09-04-2023 14:43-0400 Heart rate 80 /min Norma Mcdaniel MD Work Phone: [facility] 09-04-2023 14:43-0400 Respiratory rate 16 /min Norma Mcdaniel MD Work Phone: [facility] 09-04-2023 14:43-0400 Systolic blood pressure 132 mm[Hg] Norma Mcdaniel MD Work Phone: [facility] 08-29-2023 12:46-0400 Body height 172.72 cm [facility] 08-29-2023 12:46-0400 Body mass index (BMI) [Ratio] 32.2 kg/m2 [facility] 08-29-2023 12:46-0400 Body temperature 98 [degF] [facility] 08-29-2023 12:46-0400 Body weight 96.16 kg [facility] 08-29-2023 12:46-0400 Heart rate 94 /min [facility] 08-29-2023 12:46-0400 Respiratory rate 18 /min [facility] 08-29-2023 12:46-0400 SaO2% (BldA) [Mass fraction] 98 % [facility] 08-13-2023 13:45-0400 Body height 170.2 cm Norma Mcdaniel MD Work Phone: [facility] 08-13-2023 13:45-0400 Body mass index (BMI) [Ratio] 33.83 kg/m2 Norma Mcdaniel MD Work Phone: [facility] 08-13-2023 13:45-0400 Body temperature 97.9 [degF] oNrma Mcdaniel MD Work Phone: [facility] 08-13-2023 13:45-0400 Body weight 97.98 kg Norma Mcdaniel MD Work Phone: [facility] 08-13-2023 13:45-0400 Diastolic blood pressure 60 mm[Hg] Norma Mcdaniel MD Work Phone: [facility] 08-13-2023 13:45-0400 Heart rate 80 /min [facility] 08-13-2023 13:45-0400 Respiratory rate 16 /min [facility]iel [facility] 08-13-2023 13:45-0400 Systolic blood pressure 112 mm[Hg] [facility] 08-07-2023 15:11-0500 Body mass index (BMI) [Ratio] 33.36 kg/m2 Norma [facility]cdaniel [facility] 08-07-2023 15:11-0500 Body temperature 97.81 [degF] Norma Mcdaniel MD [facility] 08-07-2023 15:11-0500 Body weight 96.62 kg Norma Mcdaniel MD [facility] 08-07-2023 15:11-0500 Diastolic blood pressure 82 mm[Hg] Norma [facility]cdaniel MD [facility] 08-07-2023 15:11-0500 Heart rate 96 /min Norma Mcdaniel MD [facility] 08-07-2023 15:11-0500 Respiratory rate 16 /min Norma [facility]cdaniel MD [facility] 08-07-2023 15:11-0500 Systolic blood pressure 126 mm[Hg] Norma Mcdaniel MD [facility] 07-02-2023 15:05-0500 Body height 172.72 cm Chanda Dolan Other [facility] 07-02-2023 15:05-0500 Body mass index (BMI) [Ratio] 34.21 kg/m2 Chanda Dolan Other [facility] Other 07-02-2023 15:05-0500 Body temperature 99.8 [degF] Chanda Dolan Other [facility] Other 07-02-2023 15:05-0500 Body weight 102.06 kg Chanda Dolan Other [facility] Other 07-02-2023 15:05-0500 Body weight 102.05 kg [facility] 07-02-2023 15:05-0500 Respiratory rate 18 /min Chanda Dolan Other [facility] Other 07-02-2023 15:05-0500 SaO2% (BldA) [Mass fraction] 98 % Chanda Dolan Other [facility] Other 06-06-2023 13:32-0500 Body height 170.2 cm Norma Mcdaniel MD Work Phone: [employer] 06-06-2023 13:32-0500 Body mass index (BMI) [Ratio] 36.18 kg/m2 Norma Mcdaniel MD Work Phone: [employer] 06-06-2023 13:32-0500 Body weight 104.78 kg Norma Mcdaniel MD Work Phone: [employer] 06-06-2023 13:32-0500 Diastolic blood pressure 70 mm[Hg] Norma Mcdaniel MD Work Phone: [employer] 06-06-2023 13:32-0500 Heart rate 76 /min Norma Mcdaniel MD Work Phone: [employer] 06-06-2023 13:32-0500 Respiratory rate 16 /min Norma Mcdaniel MD Work Phone: [employer] 06-06-2023 13:32-0500 Systolic blood pressure 120 mm[Hg] Norma Mcdaniel MD Work Phone: [employer] 04-23-2023 15:35-0500 Body height 172.72 cm Chanda Dolan Other [facility] Other 04-23-2023 15:35-0500 Body mass index (BMI) [Ratio] 36.94 kg/m2 Chanda Dolan Other [facility] Other 04-23-2023 15:35-0500 Body temperature 99 [degF] Chanda Dolan Other [facility] Other 04-23-2023 15:35-0500 Body weight 110.22 kg Chanda Dolan Other [facility] Other 04-23-2023 15:35-0500 Respiratory rate 19 /min Chanda Dolan Other [facility] Other 04-23-2023 15:35-0500 SaO2% (BldA) [Mass fraction] 97 % Chanda Dolan Other [facility] Other 03-19-2023 15:20-0400 Body height 172.72 cm Chanda Dolan Other [facility] Other 03-19-2023 15:20-0400 Body mass index (BMI) [Ratio] 37.22 kg/m2 Chanda Dolan Other [facility] Other 03-19-2023 15:20-0400 Body temperature 98.1 [degF] Chanda Dolan Other [facility] Other 03-19-2023 15:20-0400 Body weight 111.04 kg Chanda Dolan Other [facility] Other 03-19-2023 15:20-0400 Diastolic blood pressure 65 mm[Hg] Chanda Dolan Other [facility] Other 03-19-2023 15:20-0400 Respiratory rate 18 /min Chanda Dolan Other [facility] Other 03-19-2023 15:20-0400 SaO2% (BldA) [Mass fraction] 97 % Chanda Dolan Other [facility] Other 03-19-2023 15:20-0400 Systolic blood pressure 127 mm[Hg] Chanda Dolan Other [facility] Other 12-09-2022 10:00-0400 Body height 172.72 cm India Montezmond Other [facility] Other 12-09-2022 10:00-0400 Body mass index (BMI) [Ratio] 38.77 kg/m2 India Candida Other [facility] Other 12-09-2022 10:00-0400 Body temperature 98.2 [degF] India Candida Other [facility] Other 12-09-2022 10:00-0400 Body weight 115.67 kg India Montezmond Other [facility] Other 12-09-2022 10:00-0400 Respiratory rate 18 /min India Montezmond Other [facility] Other 12-09-2022 10:00-0400 SaO2% (BldA) [Mass fraction] 97 % India Candida Other [facility] Other Encounters Encounter Date Encounter Type Care Provider Facility Start: 11-08-2023 End: 11-08-2023 [facility] Start: 11-07-2023 End: 11-07-2023 ambulatory KATHY [facility] Start: 10-23-2023 End: 10-23-2023 ambulatory LAKESHA Walker [facility] Start: 10-17-2023 End: 10-17-2023 ambulatory [facility] Start: 10-02-2023 End: 10-02-2023 ambulatory LAKESHA Walker [facility] Start: 10-02-2023 End: 10-02-2023 ambulatory KATHY MEYER [facility] Start: 09-18-2023 End: 09-18-2023 ambulatory LAKESHA Walker [facility] Start: 09-04-2023 End: 09-04-2023 ambulatory [facility] Start: 09-04-2023 End: 09-04-2023 ambulatory [facility] Start: 09-04-2023 End: 09-04-2023 Office outpatient visit 15 minutes Norma Mcdaniel MD Work Phone: [facility] Comment on above: Pleurisy (Primary Dx ) Start: 09-04-2023 End: 09-04-2023 ambulatory KATHY [facility] Start: 08-29-2023 End: 08-29-2023 ambulatory [facility] Work Phone: Start: 08-29-2023 End: 08-29-2023 Patient encounter procedure [facility] Work Phone: Start: 08-28-2023 End: 08-28-2023 ambulatory LAKESHA Walker [facility] Start: 08-14-2023 End: 08-14-2023 ambulatory LAKESHA Walker [facility] Start: 08-13-2023 End: 08-13-2023 ambulatory [facility] Start: 08-13-2023 End: 08-13-2023 Office outpatient visit 15 minutes Norma Mcdaniel MD Work Phone: [facility] Comment on above: Elevated liver enzym es (Primary Dx) Start: 08-08-2023 Orders Only Norma vital MD Work Phone: [facility] Comment on above: Elevated liver enzym es (Primary Dx) Start: 08-07-2023 End: 08-07-2023 ambulatory [facility] Start: 08-07-2023 End: 08-07-2023 ambulatory [facility] Start: 08-07-2023 End: 08-07-2023 Office outpatient visit 25 minutes Norma Mcdaniel MD Work Phone: [facility] Comment on above: STD exposure (Primar y Dx); Other fatigue; Chronic left shoulder pain Start: 08-07-2023 End: 08-07-2023 ambulatory KATHY MEY[facility] Start: 08-06-2023 Orders Only Kathy pierce [employer] Work Phone: [facility] Start: 07-31-2023 End: 07-31-2023 ambulatory [facility] Start: 07-10-2023 End: 07-10-2023 ambulatory [facility] Start: 07-10-2023 End: 07-10-2023 [facility] Start: 07-10-2023 End: 07-10-[facility] Start: 07-02-2023 End: 07-02-2023 ambulatory Chanda Dolan Other [facility] Other Start: 07-02-2023 Office outpatient vi sit 25 minutes Chanda Dolan [facility] Start: 07-02-2023 End: 07-02-2023 Patient encounter procedure [facility] Start: 06-26-2023 End: 06-26-2023 ambulatory KATHY MEY[facility] Start: 06-24-2023 End: 06-24-2023 ambulatory [facility] Start: 06-19-2023 End: 06-19-2023 ambulatory [facility] Start: 06-17-2023 End: 06-17-2023 ambulatory [facility] Start: 06-17-2023 End: 06-17-2023 ambulatory LAKESHA Walker [facility] Start: 06-15-2023 End: 06-15-2023 ambulatory [facility] Start: 06-13-2023 End: 06-13-2023 ambulatory KATHY [facility] Start: 06-10-2023 Orders Only Norma vital MD Work Phone: [facility] Start: 06-06-2023 End: 06-06-2023 ambulatory [facility] Start: 06-06-2023 End: 06-06-2023 Office outpatient visit 15 minutes Norma Mcdaniel MD Work Phone: [facility] Comment on above: Shoulder girdle synd fady (Primary Dx); Cervicalgia Start: 05-29-2023 End: 05-29-2023 ambulatory [facility] Start: 05-23-2023 End: 05-23-2023 ambulatory [facility] Start: 05-14-2023 End: 06-03-2023 ambulatory [facility] Start: 04-23-2023 End: 04-23-2023 ambulatory Chanda Dolan Other [facility] Other Start: 04-23-2023 Office outpatient vi sit 25 minutes Chanda Dolan [facility] Start: 03-19-2023 End: 03-19-2023 ambulatory Chanda Dolan Other [facility] Other Start: 03-19-2023 Office outpatient vi sit 25 minutes Chanda Dolan [facility] Start: 12-09-2022 End: 12-09-2022 ambulatory India Candida Other [employer] [facility] Other Start: 12-09-2022 Office outpatient vi sit 15 minutes India Candida [facility] Procedures Date Procedure Procedure Detail Performing Clinician Start: 09-04-2023 Follow-up visit Follow-up NORMA MCDANIEL Start: 09-04-2023 Adult depression screening assessment Norma Mcdaniel MD Work Phone: Start: 08-13-2023 Adult depression screening assessment Norma Mcdaniel MD Work Phone: Start: 07-31-2023 Follow-up visit Follow-up LAKESHA MARQUES Start: 06-19-2023 Adult depression screening assessment Kathy Sands [employer]OR [employer] Work Phone: Start: 06-06-2023 Adult depression screening assessment Norma Mcdaniel MD Work Phone: Plan of Treatment Date Care Activity Detail Author Start: 09-03-2024 Adult BMI Screening Adult BMI Screen ing [facility] Start: 09-03-2024 Depression Screening Depression Scre ening [facility] Start: 09-03-2024 Tobacco Screening Tobacco Screening [facility] Start: 08-12-2024 Adult BMI Screening Adult BMI Screen ing [facility] Start: 08-12-2024 Depression Screening Depression Scre ening [facility] Start: 08-12-2024 Tobacco Screening Tobacco Screening [facility] Start: 08-06-2024 Adult BMI Screening Adult BMI Screen ing [facility] Start: 08-06-2024 Tobacco Screening Tobacco Screening [facility] Start: 06-19-2024 Depression Screening Depression Scre ening [facility] Start: 06-06-2024 Adult BMI Screening Adult BMI Screen ing [facility] Start: 06-06-2024 Depression Screening Depression Scre ening [facility] Start: 06-06-2024 Tobacco Screening Tobacco Screening [facility] Start: 02-02-2024 Influenza vaccination Influenza Vacc ine [facility] Start: 06-06-2023 End: 06-06-2024 XR Cervical spine Views [facility] Work Phone: Comment on above: Expected: 06/06/2023 , Expires: 06/06/2024 Start: 02-01-2023 Influenza vaccination Influenza Vacc ine [facility] Start: 08-22-2022 DTaP,Tdap and Td Vaccines (3 - Tdap) DTaP,Tdap and Td Vaccines (3 - Tdap) [facility] Start: 08-22-2021 Adult BMI Follow Up Plan Adult BMI Follow Up Plan [facility] End: 08-06-2024 Chlamydia/GC by PCR urine Chlamydia/GC by PCR urine Microbiology Routine STD exposure 1 Occurrences starting 08/07/2023 until 08/06/2024 [facility] Work Phone: Comment on above: 1 Occurrences starti ng 08/07/2023 until 08/06/2024 Chlamydia/GC by PCR urine Chlamydia/GC by PCR urine Microbiology Routine STD exposure 08/07/2023 4:11 PM EST [facility] [employer] End: 08-07-2024 Hepatic function 2000 panel - Serum or Plasma Hepatic function panel Lab Routine Elevated liver enzymes 1 Occurrences starting 08/08/2023 until 08/07/2024 [employer] Work Phone: Comment on above: 1 Occurrences starti ng 08/08/2023 until 08/07/2024 [facility] Immunizations Immunization Date Immunization Notes Care Provider Fa johnna 08-27-2023 Hepatitis B vaccine (recombinant), CpG adjuvanted Norma Mcdaniel MD Work Phone: [facility] 08-27-2023 measles, mumps and rubella virus vaccine Norma Mcdaniel MD Work Phone: [facility] 08-27-2023 Meningococcal Polysaccharide TT Conjugate Norma Mcdaniel MD Work Phone: [facility] 03-27-2004 diphtheria, tetanus toxoids and acellular pertussis vaccine, unspecified formulation Norma Mcdaniel MD Work Phone: [facility] 03-27-2004 influenza virus vacc ine, whole virus Norma Mcdaniel MD Work Phone: [facility] 03-27-2004 pneumococcal conjuga te vaccine, 7 valent Norma Mcdaniel MD Work Phone: [facility] 03-27-2004 poliovirus vaccine, inactivated Norma Mcdaniel MD Work Phone: [facility] 03-27-2004 influenza virus vacc ine, unspecified formulation Norma Mcdaniel MD Work Phone: [facility] 03-22-2004 diphtheria, tetanus toxoids and acellular pertussis vaccine, unspecified formulation Norma Mcdaniel MD Work Phone: [facility] 03-22-2004 haemophilus influenz ae type b vaccine, conjugate unspecified formulation Norma Mcdaniel MD Work Phone: [facility] 03-22-2004 influenza, seasonal, injectable Norma Mcdaniel MD Work Phone: [facility] 03-22-2004 pneumococcal conjuga te vaccine, 7 valent Norma Mcdaniel MD Work Phone: [facility] 03-22-2004 poliovirus vaccine, inactivated Norma Mcdaniel MD Work Phone: [facility] 02-02-2004 DTaP-hepatitis B and poliovirus vaccine Norma Mcdaniel MD Work Phone: [facility] 02-02-2004 haemophilus influenz ae type b vaccine, conjugate unspecified formulation Norma Mcdaniel MD Work Phone: [facility] 02-02-2004 pneumococcal conjuga te vaccine, 7 valent Norma Mcdaniel MD Work Phone: [facility] 2003 hepatitis B vaccine, pediatric or pediatric/adolescent dosage Norma Mcdaniel MD Work Phone: [facility] Payers Date Payer Category Payer Private Health Insurance [facility] [id number] 2022-Present [phone] [facility] [address] [place] [address] [id number] 2022 Medicaid [id number] 2.16.840.1.482989.19 2003 Unknown [id number] 2.16.840.1.678687.3.579. 2.1285 2003 Unknown [id number] 2.16.840.1.695596.3.579. 2.1285 2003 Unknown [id number] 2.16.840.1.291195.3.579. 2.1285 2003 Unknown [id number] 2.16.840.1.400125.3.579. 2.1285 2003 Unknown [id number] 2.16.840.1.840620.3.579. 2.1285 2003 Unknown [id number] 2.840.1.517959.3.579. 2.1285 2003 Unknown [id number] 2.16.840.1.782160.3.579. 2.1285 2003 Unknown [id number] 2.16.840.1.494516.3.579. 2.1285 2003 Unknown [id number] 2.16.840.1.965642.3.579. 2.1285 2003 Unknown [id number] 2.16840.1.125560.3.579. 2.1285 2003 Unknown [id number] 2.16.840.1.840944.3.579. 2.1285 2003 Unknown [id number] 2.16.840.1.299144.3.579. 2.1285 2003 Unknown [id number] 2.16.840.1.864083.3.579. 2.1285 2003 Unknown [id number] 2.16.840.1.991739.3.579. 2.1285 2003 Unknown [id number] 2.16.840.1.267346.3.579. 2.1285 2003 Unknown [id number] 2.16.840.1.959232.3.579. 2.1285 2003 Unknown [id number] 2.16.840.1.287454.3.579. 2.1285 2003 Unknown [id number] 2.16.840.1.543598.3.579. 2.1285 2003 Unknown [id number] 2.16.840.1.981634.3.579. 2.1285 2003 Unknown [id number] 2.16.840.1.674199.3.579. 2.1285 2003 Unknown [id number] 2.16.840.1.319021.3.579. 2.1285 2003 Unknown [id number] 2.16.840.1.934200.3.579. 2.1285 2003 Unknown [id number] 2.16.840.1.500784.3.579. 2.1285 2003 Unknown [id number] 2.16.840.1.647467.3.579. 2.1285 2003 Unknown [id number] 2.16.840.1.557832.3.579. 2.1285 2003 Unknown [id number] 2.16.840.1.061829.3.579. 2.1285 2003 Unknown [id number] 2.16.840.1.590474.3.579. 2.1285 2003 Unknown [id number] 2.16.840.1.247006.3.579. 2.1285 2003 Unknown [id number] 2.16.840.1.518753.3.579. 2.1285 2003 Unknown [id number] 2.16.840.1.707988.3.579. 2.1285 2003 Unknown [id number] 2.16.840.1.978249.3.579. 2.1286 2003 Unknown [id number] 2.16.840.1.405162.3.579. 2.1286 Social History Date Type Detail Facility Unknown if ever smoked [facility] Other Start: 06-06-2023 End: 09-04-2023 [facility] Start: 04-29-2023 Tobacco smoking stat [facility] Ex-smoker [facility] History of tobacco use Current smoker [facility] History of tobacco use Tobacco U se Types Packs/Day Years Used Date Smoking Tobacco: Former Vaping/E-cigarettes Smokeless Tobacco: Never [facility] Start: 04-29-2023 Tobacco use and exposure Smokeless tobacco non-user [facility] Start: 06-06-2023 End: 09-04-2023 Alcohol intake Ex-drinker (finding) [facility] [employer] Start: 06-06-2023 End: 09-04-2023 History of Social function [facility] How hard is it for y ou to pay for the very basics like food, housing, medical care, and heating Not very hard [facility] Adolescent depressio n screening assessment 0 [facility] Start: 2003 Sex Assigned At Not on file P [facility] Start: 06-13-2023 Education 21 [facility] Start: 08-29-2023 Tobacco smoking stat [facility] Never smoked tobacco (finding) [facility] Start: 2003 Sex Assigned At Male F [facility] Clinical Notes 12-09-2022 to 09-04-2023 Norma Mcdaniel MD - 09/04/2023 2:45 PM EDTNorma Mcdaniel MD - 08/13/2023 2:00 PM Aleksey Mcdaniel MD - 08/07/2023 3:30 PM EST Note Date & Type Note Facility 09-04-2023 History of Present illness Narrative Images from the original note were not included. Carroll0 [facility]OFF [facility] [id number] SUBJECTIVE: Patient ID: Keron Dougherty is a 18 y.o. male. 18 yo x 10d of rightlung upper area gurgling and discomfort - went to and was given prednisone now finished- comes here for CXR, helped some, negative for covid The following portions of the patient's history were reviewed and updated as appropriate: allergies, current medications, past family history, past medical history, past social history, past surgical history and problem list. REVIEW OF SYSTEMS: Review of Systems Respiratory: Pleurisy PHYSICAL EXAMINATION: Vitals: 09/04/23 1443 BP: 132/80 BP Site: Left Arm BP Postition: Sitting BP CUFF SIZE: M (9-13 inches) Pulse: 80 Resp: 16 Temp: 36.7 C (98 F) TempSrc: Tympanic Weight: 94.8 kg (209 lb) Height: 170.2 cm (5' 7 ) Physical Exam Vitals and nursing note reviewed. HENT: Right Ear: Tympanic membrane normal. Left Ear: Tympanic membrane normal. Nose: Congestion and rhinorrhea present. Mouth/Throat: Pharynx: Posterior oropharyngeal erythema present. Cardiovascular: Rate and Rhythm: Normal rate and regular rhythm. Pulses: Normal pulses. Heart sounds: Normal heart sounds. Pulmonary: Effort: Pulmonary effort is normal. Breath sounds: Normal breath sounds. Musculoskeletal: Cervical back: Normal range of motion and neck supple. Skin: General: Skin is warm and dry. Neurological: General: No focal deficit present. Mental Status: He is oriented to person, place, and time. Psychiatric: Mood and Affect: Mood normal. Behavior: Behavior normal. ASSESSMENT/PLAN: Keron was seen today for follow-up. Diagnoses and all orders for this visit: Pleurisy - X-ray chest 2 views; Future Other orders - azithromycin (ZITHROMAX) 250 mg tablet; Take 2 tablets the first day, then 1 tablet daily for 4 days. Follow-up: CX zpak documented in this encounter [employer] 08-13-2023 History of Present illness Narrative Images from the original note were not included. Carroll5 [facility] [id number] SUBJECTIVE: Patient ID: Keron Dougherty is a 17 y.o. male. 17 yo WM with additional information regarding - taking 3 supplements for body building as well as advil, and pt has some ruq discomfort The following portions of the patient's history were reviewed and updated as appropriate: allergies, current medications, past family history, past medical history, past social history, past surgical history and problem list. REVIEW OF SYSTEMS: Review of Systems Respiratory: Negative. Cardiovascular: Negative. Gastrointestinal: Positive for abdominal pain. Genitourinary: Negative. Musculoskeletal: Positive for neck pain. PHYSICAL EXAMINATION: Vitals: 08/13/23 1345 BP: 112/60 BP Site: Left Arm BP Postition: Sitting BP CUFF SIZE: M (9-13 inches) Pulse: 80 Resp: 16 Temp: 36.6 C (97.9 F) TempSrc: Tympanic Weight: 98 kg (216 lb) Height: 170.2 cm (5' 7 ) Physical Exam Vitals and nursing note reviewed. Constitutional: Appearance: Normal appearance. HENT: Head: Normocephalic and atraumatic. Eyes: Extraocular Movements: Extraocular movements intact. Pupils: Pupils are equal, round, and reactive to light. Cardiovascular: Rate and Rhythm: Normal rate and regular rhythm. Pulses: Normal pulses. Heart sounds: Normal heart sounds. Pulmonary: Effort: Pulmonary effort is normal. Breath sounds: Normal breath sounds. Abdominal: Tenderness: There is no abdominal tenderness. Skin: General: Skin is warm and dry. Neurological: General: No focal deficit present. Mental Status: He is alert and oriented to person, place, and time. Psychiatric: Mood and Affect: Mood normal. Behavior: Behavior normal. ASSESSMENT/PLAN: Keron was seen today for results. Diagnoses and all orders for this visit: Elevated liver enzymes Follow-up: Pt will stop energy, prework out, and stop creatinine Avoid naproxen and ibuprofen Liver panel in 4weeks Pt may start cardio [facility] History of Present illness Narrative Images from the original note were not included. Joby TELLEZ AKHIL [facility] [id number] SUBJECTIVE: Patient ID: Keron Dougherty is a 17 y.o. male. 17 yo WM with with several issues: 1) fatigue and hairloss,and throat/swallowing difficulty Anxiety has been manageable 2) left shoulder and neck pain with left hand numbness at times 3) right testicle pain x 3-4 days urine was cloudy 4)right groin pain 5) some buring of throat The following portions of the patient's history were reviewed and updated as appropriate: allergies, current medications, past family history, past medical history, past social history, past surgical history and problem list. REVIEW OF SYSTEMS: Review of Systems PHYSICAL EXAMINATION: Vitals: 08/07/23 1511 BP: 126/82 BP Site: Left Arm BP Postition: Sitting BP CUFF SIZE: M (9-13 inches) Pulse: 96 Resp: 16 Temp: 36.6 C (97.8 F) TempSrc: Tympanic Weight: 96.6 kg (213 lb) Physical Exam ASSESSMENT/PLAN: Diagnoses and all orders for this visit: STD exposure - Cancel: Chlamydia/GC by PCR Sulma Swab; Future - Herpes IgG profile; Future - HIV 1&2 AB/AG Screen (P24 AG); Future - Syphilis Total(Unknown Syphilis Status); Future - Chlamydia/GC by PCR urine; Future Other fatigue - CBC auto differential; Future - Comprehensive metabolic panel; Future - Lipid profile; Future - Thyroid profile includes TSH FT4; Future Chronic left shoulder pain - X-ray shoulder left minimum 2 views; Future Other orders - cyclobenzaprine (FLEXERIL) 10 mg tablet; Take 1 tablet (10 mg total) by mouth once daily at bedtime. - naproxen (NAPROSYN) 500 mg tablet; Take 1 tablet (500 mg total) by mouth in the morning and 1 tablet (500 mg total) in the evening. Take with meals. - ciprofloxacin HCl (CIPRO) 500 mg tablet; Take 1 tablet (500 mg total) by mouth in the morning and 1 tablet (500 mg total) before bedtime. Do all this for 15 days. Follow-up: Fastin glabs and STD screen Flexeril 10mg qhs Naproxen 500mg bid Cipro 500mg bid x15 d Xray left shoulder documented in this encounter [facility] 07-02-2023 Evaluation note Encounter Date Diagnosis Assessment Notes Jun, Acute effusion of right ear (ICD-10 - H65.191) Discussed diagnosis with patient, explained to patient that there is middle ear fluid without signs of bacterial infection, antibiotics are not indicated at this time. This is commonly due to ET dysfunction, viral illness, allergies, barotrauma, or recent AOM. Advised patient that fluid in middle ear may take several weeks to resolve. Take OTC medications of Flonase and Zyrtec/Claritin as directed. Supportive treatment as directed, push fluids/test, Tylenol/Motrin for discomfort. Follow up with PCP in 2 weeks or sooner for new or worsening symptoms. Patient verbalizes understanding and is agreeable to treatment plan [facility] Other 01-04-2024 History of Present illness Narrative* Norma Mcdaniel MD - 06/06/2023 1:45 PM EST Images from the original note were not included. [address] [facility] [id number] SUBJECTIVE: Patient ID: Keron Dougherty is a 17 y.o. male. 17 yo WM in PTx for shoulder girdle strain and PTx is concerned for nerve impingement and possible disc disease- was referred back to our office for further evaluation. The numbness of his right 4-5 fingers has resolved, PTx was helping but pt has plateaued without resolution. The following portions of the patient's history were reviewed and updated as appropriate: allergies, current medications, past family history, past medical history, past social history, past surgicalhistory and problem list. REVIEW OF SYSTEMS: Review of Systems Musculoskeletal: Positive for back pain and myalgias. Negative for neck pain. Neurological: Negative for numbness. PHYSICAL EXAMINATION: Vitals: 06/06/23 1332 BP: 120/70 BP Site: Left Arm BP Postition: Sitting BP CUFF SIZE: M (9-13 inches) Pulse: 76 Resp: 16 Weight: 104.8 kg (231 lb) Height: 170.2 cm (5' 7 ) Physical Exam Vitals and nursing note reviewed. Constitutional: Appearance: Normal appearance. HENT: Head: Normocephalic and atraumatic. Musculoskeletal: Comments: Negativ compression test, negative adson's test Skin: General: Skin is warm and dry. Neurological: General: No focal deficit present. Mental Status: He is alert and oriented to person, place, and time. Psychiatric: Mood and Affect: Mood normal. Behavior: Behavior normal. ASSESSMENT/PLAN: Keron was seen today for herniated disc and neck and back pains. 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 Will send in Rx of naproxen to use as directed. May use OTC Tylenol and icy hot application for additional relief. Encouraged warm compresses, light stretches, and massage may also help with pain. Avoid strenuous activity, perform activity as tolerated. Follow up with PCP in 1 week if symptoms do not improve. Immediate eval for chest pain, shortness of breath, fever, numbness or tingling, loss of bowel or bladder control, pain becomes severe, difficulty moving neck, back, arms or legs, dizziness, headache, or any other new or concerning symptoms arise. Patient verbalizes understanding and is agreeable to treatment plan [facility] Other 10-17-2023 Evaluation note* Encounter Date Diagnosis Assessment Notes Treatment Notes Treatment Clinical Notes Mar, Sore throat (ICD-10 - J02.9) Mar, Seasonal allergic rhinitis due to pollen (ICD-10 - J30.1) Advised patient that rapid strep test was negative today in office. Physical exam is consistent with allergic rhinitis. We will send in Rx of prednisone and cetirizine to use as directed. Encouraged supportive care as directed, Tylenol as needed, salt water gargles, throat lozenges, cool mist humidification. Patient to follow-up with PCP if no improvement of symptoms. Immediate evaluation for signs/symptoms as discussed. Patient verbalizes understanding and is agreeable with treatment plan [facility] Other 07-09-2023 Evaluation note* Encounter Date Diagnosis Assessment Notes Treatment Notes Treatment Clinical Notes Dec, Sore throat (ICD-10 - J02.9) Dec, Viral upper respiratory illness (ICD-10 - J06.9) Viral upper respiratory infection: adult home care material was printed Drink plenty fluids, get plenty of rest. Take Tylenol or Motrin for aches pains or fevers. Follow-up with your family physician if no improvement in 2 to 3 days. You may take Mucinex and/or Sudafed for nasal congestion. [facility] Other Evaluation note* Diagnosis Shoulder girdle syndrome- Primary Neuralgic amyotrophy Cervicalgia [facility]* Diagnosis STD exposure- Primary Other fatigue Chronic left shoulder pain Pain in joint, shoulder region Chronic left shoulder pain Pain in joint, shoulder region [facility]* Diagnosis Elevated liver enzymes- Primary Other nonspecific abnormal serum enzyme levels [facility]* Diagnosis Elevated liver enzymes- Primary Other nonspecific abnormal serum enzyme levels [facility] System[facility] noteNo assessment information available [facility] Work Phone: Evaluation note* Diagnosis Pleurisy- Primary Pleurisy without mention of effusion or current tuberculosis Pleurisy Pleurisy without mention of effusion or current tuberculosis documented in this encounter [facility] SystemHistory general Narrative - Reported* Type Description Date Medical History Anxiety Medical History Depression [facility] Other Instructions* Attachments The following attachments cannot be sent through Care Everywhere. * Neck pain (Afghan) documented in [facility] encounterProCl[facility] SystemInstructionsNot on file documented in this encounterProFostoria City HospitalInnovation International SystemInstructionsNot on file documented in this encounterProFostoria City HospitalInnovation International SystemInstructions* Attachments The following attachments cannot be sent through Care Everywhere. * Thoracic Outlet Syndrome Exercises (Afghan) * Thoracic Outlet Syndrome (Afghan) documented in this encounterProClay County Hospital Health SystemInstructionsNot on file documented in this encounterProFairfield Medical Center SystemInstructionsNot on file documented in this encounterProMedica [facility]edo [facility] SystemInstructions* Attachments The following attachments cannot be sent through Care Everywhere. * Tips to Help You [place] in Uncertain Times (Afghan) documented in this encounterProMedica [facility] Hospital SystemInstructions* Attachments The following attachments cannot be sent through Care Everywhere. * Pleuritic chest pain (Afghan) documented in this encounterProMedica Toledo Hospital System Summary Purpose Family History No Family History Records FoundNo Family History Records FoundNo Family History Records Found Advance Directives No Advanced Directives Records Found Advance Directive Response Recorded Date/ Time Advance Directives No August 28, 024 12:37pm Chief Complaint and Reason for Visit Chief Complaint Poss Right Ear Infec tion cough,congestion, fever Additional Source Comments REASON FOR VISIT (unrecogniz ed section and content) Reason Comments herniated disc neck and back pains Reason Comments Results Reason Comments Follow-up Urgent Care (unrecognized sect ion and content) No Status Records FoundNo Status Records FoundNo Status Records Found INFORMATION SOURCE (unrecogn ized section and content) DATE CREATED AUTHOR 05/25/2023 [place] DATE CREATED AUTHOR AUTHOR'S ORGANIZ ATION 10/20/2023 [facility] DATE CREATED AUTHOR AUTHOR'S ORGANIZ ATION [facility]/08/2023 [facility] Care Teams (unrecognized sec tion and content) External Grinder Tender Relationship Specialty Start Date End Date Norma Mcdaniel MD [address] [place] [address] PCP - General Family Medicine 04/29/23 External Grinder Tender Relationship Specialty Start Date End Date Norma Mcdaniel MD [address] [place] [address] PCP - General Family Medicine 04/29/23 External Grinder Tender Relationship Specialty Start Date End Date Norma Mcdaniel MD [address] [place] [address] PCP - General Family Medicine 04/29/23 External Grinder Tender Relationship Specialty Start Date End Date Norma Mcdaniel MD [address] [place] [address] PCP - [facility] 04/29/23 External Grinder Tender Relationship Specialty Start Date End Date Norma Mcdaniel MD [address] [place] [address] PCP - [facility] 04/29/23 External Grinder Tender Relationship Specialty Start Date End Date Norma Mcdaniel MD [address] [place] [address] PCP - [facility] 04/29/23 External Grinder Tender Relationship Specialty Start Date End Date Norma Mcdaniel MD [address] [place] [address] PCP - [facility] 04/29/23 Team Status: Active Member Role Status Dates PHYSICIAN NO FAMILY Primary Care Provider Active Team Status: Inactive Member Role Status Dates Chanda Dolan APRN Attending Provider Active Start: July 02, 2023 End: July 02, 2023 Team Status: Inactive Member Role Status Dates PHYSICIAN NO FAMILY Primary Care Provider Active Start: August 29, 2023 End: August 29, 2023 Chanda Dolan APRN Attending Provider Active Start: August 29, 2023 End: August 29, 2023 External Grinder Tender Relationship Specialty Start Date End Date Norma Mcdaniel MD [address] [place], [place] [id number] [facility] 04/29/23 Goals (unrecognized section and content) Goals may be documented in a n alternate section FOR RECORDS PERTAINING TO PATIENTS WHO ARE OR HAVE BEEN ENROLLED IN A CHEMICAL DEPENDENCY/SUBSTANCEABUSE PROGRAM, SOME INFORMATION MAY BE OMITTED. This clinical summary was aggregated from multiple sources. Caution should be exercised in using it in the provision of clinical care. This summary normalizes information from multiple sources, and as a consequence, information in this document may materially change the coding, format and clinical context of patient data. In addition, data may be omitted in some cases. CLINICAL DECISIONS SHOULD BE BASED ON THE PRIMARY CLINICAL RECORDS. [employer] [facility]. provides no warranty or guarantee of the accuracy or completeness of information in this document.
[2023-11-17 02:27] LABS: Basophils Absolute Auto 0.1 10^3/uL (0.0-0.1); Basophils Percent Auto 0.4 % (0.2-2.0); Eosinophils Absolute Auto 0.2 10^3/uL (0.0-0.7); Eosinophils Percent Auto 1.2 % (0.9-7.0); Hemoglobin 15.7 g/dL (14.0-18.0); Immature Granulocytes Abs Auto 0.05 10^3/uL (0.00-0.03); Immature Granulocytes Pct Auto 0.4 % (0.0-0.5); Lymphocytes Percent Auto 30.4 % (20.5-60.0); Mean Corpuscular HGB Conc 35.7 g/dL (29.9-35.2); Mean Corpuscular Hemoglobin 30.7 pg (25.9-34.0); Mean Corpuscular Volume 86.1 fL (80.0-94.0); Mean Platelet Volume 9.2 fL (9.5-13.5); Monocytes Absolute Auto 1.3 10^3/uL (0.3-0.8); Monocytes Percent Auto 9.7 % (1.7-12.0); Neutrophils Absolute Auto 7.7 10^3/uL (1.4-6.5); Neutrophils Percent Auto 57.9 % (43.0-75.0); Platelet Count 241 10^3/uL (150-450); Red Blood Count 5.11 10^6/uL (4.70-6.10); White Blood Count 13.2 10^3/uL (4.0-11.0)
--- NOTE | 2023-11-17 02:41 | ED.ABDPAIN1 ---
HPI - Abdominal Pain General Chief Complaint: Abdominal Pain Stated Complaint: ABD PAIN Time Seen by Provider: 11/17/23 02:25 Source: patient Mode of arrival: walk-in Limitations: no limitations History of Present Illness HPI narrative: patient states he has been experiencing dizzy episodes of room spinning for past couple of weeks. Worse when he is standing. Now presents with RUQ pain for past 7 hours. No vomiting or shortness of breath. No headache. States has right ear pain and points to right mastoid region Related Data Home Medications ?Medication ?Instructions ?Recorded ?Confirmed bupropion HCl 150 mg 24 hr tablet, 150 mg PO DAILY 11/09/23 11/17/23 extended release buspirone 15 mg tablet 15 mg PO DAILY 11/09/23 11/17/23 dextroamphetamine-amphetamine ER 15 mg PO DAILY 11/09/23 11/17/23 15 mg 24hr capsule,extend release Previous Rx's ?Medication ?Instructions ?Recorded albuterol sulfate 90 mcg/actuation 2 inh inhalation Q4H PRN shortness 11/09/23 aerosol inhaler of breath or wheezing #8.5 grams cefdinir 300 mg capsule 300 mg PO BID 10 days #20 caps 11/09/23 ketorolac 10 mg tablet 10 mg PO TID PRN pain #10 tabs 11/09/23 Allergies Allergy/AdvReac Type Severity Reaction Status Date / Time No Known Drug Allergies Allergy Verified 11/17/23 02:10 Review of Systems ROS Status of ROS 10 or more systems reviewed and unremarkable except as noted in history and below Exam Constitutional Vital Signs, click to edit/add: Last Vital Signs Temp 98.8 F 11/17/23 02:04 Pulse 96 H 11/17/23 02:04 Resp 16 11/17/23 02:04 BP 127/87 11/17/23 02:04 Pulse Ox 98 11/17/23 02:04 O2 Del Method Room Air 11/17/23 02:04 Common normals: no apparent distress, average body habitus, oriented x3, no limitations, healthy appearing, alert and well nourished [facility] Common normals: normocephalic and head/scalp atraumatic Eye Common normals: EOMs intact bilaterally, conjunctivae normal and no scleral icterus Respiratory Common normals: normal respiratory effort, no retractions, no use of accessory muscles and clear to auscultation bilaterally Cardio Common normals: regular rate, regular rhythm, S1 normal heart sound and S2 normal heart sound GI Common normals: Normal to inspection, nondistended, normoactive bowel sounds present and soft to palpation Other: RUQ tenderness. no guarding Extremity Common normals: normal to inspection and full ROM Neuro Common normals: oriented x3, CN's II-XII intact bilaterally, moves all extremities and no focal motor deficits Psych Appearance: grossly normal Course Vital Signs Vital signs: Vital Signs Temperature 98.8 F 11/17/23 02:04 Pulse Rate 96 H 11/17/23 02:04 Respiratory Rate 16 11/17/23 02:04 Blood Pressure 127/87 11/17/23 02:04 Pulse Oximetry 98 11/17/23 02:04 Oxygen Delivery Method Room Air 11/17/23 02:04 Temperature 98.8 F 11/17/23 02:04 Pulse Rate 96 H 11/17/23 02:04 Respiratory Rate 16 11/17/23 02:04 Blood Pressure 127/87 11/17/23 02:04 Pulse Oximetry 98 11/17/23 02:04 Oxygen Delivery Method Room Air 11/17/23 02:04 MDM - Abdominal Pain MDM Narrative Medical decision making narrative: patient presents with positional vertigo symptoms for past couple of weeks and one day history of RUQ pain. Exam with RUQ tenderness without guarding. Afebrile. labs neg. CT abd/pelvis neg. Patient feeling better after treatment in the department which included Solumedrol and meclizine. Discharged with prescription of antivert and advised to follow up with his doctor Lab Data Labs: Lab Results 11/17/23 Range/Units 02:10 WBC 13.2 H (4.0-11.0) 10^3/uL RBC 5.11 (4.70-6.10) 10^6/uL Hgb 15.7 (14.0-18.0) g/dL Hct 44.0 (42.0-54.0) % MCV 86.1 (80.0-94.0) fL MCH 30.7 (25.9-34.0) pg MCHC 35.7 H (29.9-35.2) g/dL RDW 13.0 (11.0-15.0) % Plt Count 241 (150-450) 10^3/uL MPV 9.2 L (9.5-13.5) fL Neut % (Auto) 57.9 (43.0-75.0) % Lymph % (Auto) 30.4 (20.5-60.0) % [place] % (Auto) 9.7 (1.7-12.0) % Eos % (Auto) 1.2 (0.9-7.0) % Baso % (Auto) 0.4 (0.2-2.0) % Neut # (Auto) 7.7 H (1.4-6.5) 10^3/uL Lymph # (Auto) 4.0 H (1.2-3.8) 10^3/uL [place] # (Auto) 1.3 H (0.3-0.8) 10^3/uL Eos # (Auto) 0.2 (0.0-0.7) 10^3/uL Baso # (Auto) 0.1 (0.0-0.1) 10^3/uL Abs Immat Gran (auto) 0.05 H (0.00-0.03) 10^3/uL Imm/Tot Granulo (auto) 0.4 (0.0-0.5) % Sodium 138 (136-145) mmol/L Potassium 3.4 L (3.5-5.1) mmol/L Chloride 106 (98-107) mmol/L Carbon Dioxide 30.2 (21.0-32.0) mmol/L Anion Gap 5.2 BUN 11.0 (7.0-18.0) mg/dL Creatinine 1.02 (0.70-1.30) mg/dL Est GFR ( Amer) >60 (>=60) Est GFR (Non-Af Amer) >60 (>=60) BUN/Creatinine Ratio 10.8 Glucose 96 (74-106) mg/dL Lactate 0.6 (0.4-2.0) mmol/L Calcium 9.1 (8.5-10.1) mg/dL Total Bilirubin 0.8 (0.2-1.0) mg/dL AST 29 (15-37) U/L ALT 53 (16-63) U/L Alkaline Phosphatase 70 (46-116) U/L Total Protein 6.9 (6.4-8.2) g/dL Albumin 3.7 (3.4-5.0) g/dL Globulin 3.2 g/dL Albumin/Globulin Ratio 1.2 Lipase 34.0 (16.0-77.0) U/L Imaging Data Chest x-ray: Radiologist's impression: ITS Impressions Abdomen/Pelvis CT 11/17/23 02:44 IMPRESSION: No acute findings in the abdomen or pelvis. No specific cause of right upper quadrant pain is seen. Electronically authenticated by: OTF PEACOCK Date: 11/17/2023 05:08 Chest X-Ray 11/17/23 02:44 IMPRESSION: No radiographic evidence of active cardiopulmonary disease is seen. Electronically authenticated by: JUAN DAVID ARAYA Date: 11/17/2023 05:10 Discharge Plan Discharge Stand Alone Forms: Portal Instructions Chief Complaint: Abdominal Pain Clinical Impression: Abdominal pain, Vertigo Patient Disposition: Home, Self-Care Prescriptions / Home Meds: No Action buspirone 15 mg tablet 15 mg PO DAILY dextroamphetamine-amphetamine 15 mg capsule,extended release 24hr 15 mg PO DAILY bupropion HCl 150 mg tablet extended release 24 hr 150 mg PO DAILY ketorolac 10 mg tablet 10 mg PO TID PRN (Reason: pain) Qty: 10 0RF albuterol sulfate 90 mcg/actuation HFA aerosol inhaler 2 inh inhalation Q4H PRN (Reason: shortness of breath or wheezing) Qty: 8.5 0RF cefdinir 300 mg capsule 300 mg PO BID 10 Days Qty: 20 0RF Print Language: Djiboutian Instructions: Vertigo (ED), Abdominal Pain (ED) Referrals: NORMA WAKEFIELD [Primary Care Provider] - 1 week
[2023-11-17 02:43] LABS: Alanine Aminotransferase 53 U/L (16-63); Albumin Globulin Ratio 1.2; Albumin Level 3.7 g/dL (3.4-5.0); Alkaline Phosphatase 70 U/L (46-116); Anion Gap 5.2; Aspartate Amino Transferase 29 U/L (15-37); BUN Creatinine Ratio 10.8; Bilirubin Total 0.8 mg/dL (0.2-1.0); Calcium 9.1 mg/dL (8.5-10.1); Carbon Dioxide 30.2 mmol/L (21.0-32.0); Chloride 106 mmol/L (98-107); Estimated GFR (African America >60 (>=60); Estimated GFR (Non-African Ame >60 (>=60); Globulin 3.2 g/dL; Glucose 96 mg/dL (74-106); Potassium 3.4 mmol/L (3.5-5.1); Sodium 138 mmol/L (136-145); Total Protein 6.9 g/dL (6.4-8.2)
--- NOTE | 2023-11-17 02:44 | CT_ITS ---
The [address] [address] Patient Name: CHRISTI DOUGHERTY MRN: [id number] date: 2005 Sex: M Assigned Patient Location: ER Current Patient Location: ER Accession/Order Number: [id number] Exam Date: 11/17/2023 03:00 Report Date: 11/17/2023 05:08 At the request of: [facility] Procedure: CT abdomen pelvis w con EXAM: CT abdomen pelvis w con HISTORY: RUQ pain COMPARISON: None. TECHNIQUE: IV contrast enhanced CT imaging the abdomen and pelvis was performed using 98 mL of Omnipaque 300 intravenous contrast. Sagittal and coronal reconstructions are provided. Dose reduction techniques were achieved by using automated exposure control and/or adjustment of mA and/or kV according to patient size and/or use of iterative reconstruction technique. FINDINGS: CT ABDOMEN: The lung bases are clear. The imaged heart is unremarkable. The liver, contracted gallbladder, pancreas, spleen, adrenal glands, kidneys, aorta, IVC, stomach and small bowel appear within normal limits. CT PELVIS: The appendix, pelvic small bowel loops, colon, prostate and urinary bladder appear unremarkable. There are a few mildly prominent but nonenlarged right lower quadrant mesenteric lymph nodes. No pathologically enlarged nodes are seen in the abdomen or pelvis. No inflammatory fat stranding, free fluid, loculated fluid or free air is seen in the abdomen or pelvis. No acute osseous abnormality or suspicious bony lesion is seen. CT/CT abdomen pelvis w con IMPRESSION: No acute findings in the abdomen or pelvis. No specific cause of right upper quadrant pain is seen. Electronically authenticated by: OTF PEACOCK Date: 11/17/2023 05:08
--- NOTE | 2023-11-17 02:44 | XR_ITS ---
The [place] [id number] Patient Name: CHRISTI DOUGHERTY MRN: [id number] date: 2005 Sex: M Assigned Patient Location: ER Current Patient Location: ER Accession/Order Number: [id number] Exam Date: 11/17/2023 03:00 Report Date: 11/17/2023 05:10 At the request of: [facility] Procedure: XR chest 2V HISTORY: Right upper quadrant pain and right chest pain for several months. XR chest 2V: 11/17/2023 3:00 AM EDT COMPARISON: PA and lateral chest 11/04/2023. FINDINGS: The cardiomediastinal silhouette appears within normal limits in size. No focal consolidation, pleural effusion, pneumothorax, or evidence of congestive heart failure is seen. XR/XR chest 2V IMPRESSION: No radiographic evidence of active cardiopulmonary disease is seen. Electronically authenticated by: JUAN DAVID ARAYA Date: 11/17/2023 05:10
[2023-11-17] MEDS: 0.9 % SODIUM CHLORIDE 1,000 ML 999 ML IV (03:14)
[2023-11-17] MEDS: METHYLPREDNISOLONE SOD SUCC PF 125 MG/2 ML VIAL IVP (03:15)
[2023-11-17] MEDS: MECLIZINE HCL 12.5 MG TABLET 25 MG PO (03:15)
[2023-11-17 03:24] LABS: Lactate/Lactic Acid 0.6 mmol/L (0.4-2.0)
[2023-11-17 06:13] VITALS: BP 125/75; PULSE 88; O2SAT 97
== END 2023-11-17 06:17 | disposition home or self-care (01) ==
PROVIDERS: Emergency Provider Internal Medicine; PCP Family Medicine
DX: R10.9 Unspecified abdominal pain (principal); R42 Dizziness and giddiness
CPT/HCPCS: 36415; 71046; 74177; 80053; 83605; 83690; 85025; 96361; 96374; 99285; J2919; Q9967